=== PATIENT | female | born 1995 | race Caucasian/White ===

== ENCOUNTER 2017-01-25 18:57 | Emergency (ER) | payer OTHER ==
[~2017-01-25] VITALS: Ht 160 cm; Wt 43.0 kg
[~2017-01-25 18:57] MED LIST: ALBUAER19 INH; BCPILLS PO; CRAN1TAB9 PO
[2017-01-25 19:13] VITALS: TEMP 36.9; Ht 160 cm; Wt 43.0 kg
[2017-01-25] MEDS ORDERED: SODIUM CHLORIDE 0.9% 1000ML 1,000 ML IV ONE (20:44)
[2017-01-25] MEDS ORDERED: SODIUM CHLORIDE 0.9% 1000ML 1,000 ML IV STA (20:44)
--- NOTE | 2017-01-25 20:52 | EMERGENCY ROOM VISIT NOTE ---
History Report prepared by Presley: Phil Painter Under the Supervision of: Dr. Chilo Trinidad M.D. First contact with patient: 20:38 Chief Complaint: ABDOMINAL PAIN Stated Complaint: CRAMPS,LOSS OF SYMPTOMS, 9WKS Nursing Triage Summary: 9 weeks . abdominal cramping for 1 week. previous miscarriage. denies N/V/D History of Present Illness The patient is a 21 year old female who presents to the Emergency Room with complaints of constant abdominal cramping for the past week. The patient states that she is currently 9 weeks , and she has a history of a miscarriage 3 years ago. The patient states that earlier she was nauseous and vomited, however these symptoms have gone away, and this is similar to her last miscarriage, so she is worried. She states that her last normal menstrual period was November 18. The patient denies any vaginal bleeding, urinary symptoms, or headaches. The patient additionally states that she has been having normal bowel movements. The patient states that she was recently at the clinic, and they stated that the fetus was healthy and had a heart beat. She states that the patient has an appointment with a bread dumper in a few weeks. She states that she has no other medical problems, and she is just taking vitamins. Source of History: patient, parent Onset: week ago Position: abdomen Quality: cramping Timing: constant Associated Symptoms: No headache, No urinary symptoms Review of Systems See HPI for pertinent positives & negatives. A total of 10 systems reviewed and were otherwise negative. Past Medical & Surgical Medical Problems: (1) Missed Old medical records were reviewed. Nurse's notes were reviewed and I agree with. This is her second . Previous miscarriage 1 Family History Cancer Diabetes mellitus Social History Smoking Status: Never Smoker Alcohol Use: none Drug Use: none Marital Status: single Housing Status: lives with significant other Occupation Status: employed Current/Historical Medications Scheduled Multivit/Min/Iron/Fol Ac/Pren ( Vitamin), 1 TAB PO DAILY Allergies Coded Allergies: No Known Allergies (Verified , 04/27/14) Physical Exam Vital Signs Date Time Temp Pulse Resp B/P Pulse Ox O2 Delivery O2 Flow Rate FiO2 01/25/17 23:54 72 20 108/63 99 01/25/17 22:27 60 16 115/60 100 Room Air 01/25/17 20:36 73 16 118/71 100 Room Air 01/25/17 19:13 36.9 102 20 124/70 100 Room Air Physical Exam General: Non-ill appearing young female in no acute distress. HEENT: Normal cephalic atraumatic. Pupils are equal round and reactive to light. Extraocular movements are intact. Oropharynx is pink with moist mucous membranes. No swelling of the mouth lips or tongue. Neck: Supple with a midline trachea. No meningeal signs or stiffness, no JVD or bruits. No Stridor. Chest: Clear to auscultation bilaterally. No wheezes or rhonchi. No increased work of breathing. Heart: regular rate and rhythm. Abdomen: Soft nontender, nondistended without rebound guarding or rigidity. Extremities: No cyanosis clubbing or edema. No calf tenderness or assymetry Spine/Back. Non tender to palpation. No CVA tenderness Skin: Good turgor without rashes. Neurologic exam: Cranial nerves two through 12 are intact. Motor and sensation are intact and symmetrical throughout. Medical Decision & Procedures ER Provider Diagnostic Interpretation: Radiology results as stated below per my review and radiologist interpretation: Limited ultrasound LIMITED (US) CLINICAL HISTORY: eval for ectopic, miscarriage pain TECHNIQUE: Ultrasound COMPARISON STUDY: None FINDINGS: Single, viable intrauterine . Expected gestational age is 9 weeks 1 day. A heart rate is confirmed at 170 bpm. IMPRESSION: Single, viable intrauterine . Estimated gestational age is 9 weeks 1 day. Electronically signed by: Rolando Earl M.D. 01/25/2017 10:30 PM Dictated Date/Time: 01/25/2017 10:28 PM Laboratory Results 01/25/17 21:04 Red Blood Count 4.83, Mean Corpuscular Volume 83.4, Mean Corpuscular Hemoglobin 30.8, Mean Corpuscular Hemoglobin Concent 37.0, Mean Platelet Volume 8.8, Neutrophils (%) (Auto) 76.4, Lymphocytes (%) (Auto) 14.7, Monocytes (%) (Auto) 8.0, Eosinophils (%) (Auto) 0.3, Basophils (%) (Auto) 0.3, Neutrophils # (Auto) 8.76, Lymphocytes # (Auto) 1.68, Monocytes # (Auto) 0.92, Eosinophils # (Auto) 0.04, Basophils # (Auto) 0.03 01/25/17 21:04 Test 01/25/17 20:35 01/25/17 21:04 Urine Color YELLOW Urine Appearance CLEAR (CLEAR) Urine pH 7.5 (4.5-7.5) Urine Specific [place] 1.010 (1.000-1.030) Urine Protein NEG (NEG) Urine Glucose (UA) NEG (NEG) Urine Ketones 1+ (NEG) Urine Occult Blood TRACE (NEG) Urine Nitrite NEG (NEG) Urine Bilirubin NEG (NEG) Urine Urobilinogen NEG (NEG) Urine Leukocyte Esterase MODERATE (NEG) Urine RBC 0-4 /hpf (0-4) Urine WBC 10-30 /hpf (0-5) Urine Epithelial Cells >30 /lpf (0-5) Urine Bacteria NEG (NEG) White Blood Count 11.46 K/uL (4.8-10.8) Red Blood Count 4.83 M/uL (4.2-5.4) Hemoglobin 14.9 g/dL (12.0-16.0) Hematocrit 40.3 % (37-47) Mean Corpuscular Volume 83.4 fL (80-100) Mean Corpuscular Hemoglobin 30.8 pg (25-34) Mean Corpuscular Hemoglobin Concent 37.0 g/dl (32-36) Platelet Count 231 K/uL (130-400) Mean Platelet Volume 8.8 fL (7.4-10.4) Neutrophils (%) (Auto) 76.4 % Lymphocytes (%) (Auto) 14.7 % Monocytes (%) (Auto) 8.0 % Eosinophils (%) (Auto) 0.3 % Basophils (%) (Auto) 0.3 % Neutrophils # (Auto) 8.76 K/uL (1.4-6.5) Lymphocytes # (Auto) 1.68 K/uL (1.2-3.4) Monocytes # (Auto) 0.92 K/uL (0.11-0.59) Eosinophils # (Auto) 0.04 K/uL (0-0.5) Basophils # (Auto) 0.03 K/uL (0-0.2) RDW Standard Deviation 36.8 fL (36.4-46.3) RDW Coefficient of Variation 12.0 % (11.5-14.5) Immature Granulocyte % (Auto) 0.3 % Immature Granulocyte # (Auto) 0.03 K/uL (0.00-0.02) Anion Gap 13.0 mmol/L (3-11) Est Creatinine Clear Calc Drug Dose 132.4 ml/min Estimated GFR () > 150.0 Estimated GFR (Non- 143.2 BUN/Creatinine Ratio 11.5 (10-20) Calcium Level 9.2 mg/dl (8.5-10.1) Total Bilirubin 1.8 mg/dl (0.2-1) Direct Bilirubin 0.3 mg/dl (0-0.2) Aspartate Amino Transf (AST/SGOT) 16 U/L (15-37) Alanine Aminotransferase (ALT/SGPT) 22 U/L (12-78) Alkaline Phosphatase 69 U/L (45-117) Total Protein 7.9 gm/dl (6.4-8.2) Albumin 4.1 gm/dl (3.4-5.0) Lipase 90 U/L (73-393) Human Chorionic Gonadotropin, Quant [id number] mIU/mL Lab results reviewed by me Medications Administered Medications (Trade) Dose Ordered Sig/Myla Route Start Time Stop Time Status Last Admin Dose Admin Sodium Chloride (Nss 1000ml) 1,000 ml @ 999 mls/hr Q1H1M STAT IV 01/25/17 20:44 01/25/17 21:44 DC 01/25/17 20:44 999 MLS/HR ED Course 2037: Past medical records reviewed. The patient was evaluated in room C4, and a complete history and physical examination were performed. 2043: Sodium Chloride 1000 ml @ 999 mls/hr IV, Sodium Chloride 1000 ml @ 150 mls /hr IV 6: Upon reevaluation, the patient is feeling better. I discussed the results and treatment plan with her. She verbalized agreement of the treatment plan. The patient was discharged home. Medical Decision Differentials include, but are not limited to; ectopic , miscarriage, intrauterine , UTI, electrolyte or metabolic abnormalities. This patient comes in as described above. She is . She's had no vaginal bleeding. She felt sick and now feels well and felt like this during her previous miscarriage was concerned that she could be starting to miscarry. She's had no trauma. She has no urinary symptoms. She has some mild lower abdominal pain at times. IV access established was hydrated with IV normal saline. Multiple blood tests was obtained. Her white count minimally elevated. She is not anemic. She's had no significant electrolyte or metabolic abnormalities. Her urinalysis is suboptimal and I do not think is likely has a UTI. She has no symptoms to suggest a UTI and we will await the culture results. Ultrasound shows a viable IUP with a normal heartbeat. The patient was reassured that at this point things looked good. She is Rh- however she has no bleeding or indication for RhoGAM at this point. I encouraged her to follow up with her bread dumper the next couple days for recheck and return to the ER if: vaginal bleeding, abdominal cramping, worsening of symptoms, any new problems or concerns. She is happy the plan and discharged to home. Impression Primary Impression: Intrauterine Additional Impression: Lower abdominal pain Scribe Attestation The scribe's documentation has been prepared under my direction and personally reviewed by me in its entirety. I confirm that the note above accurately reflects all work, treatment, procedures, and medical decision making performed by me. Departure Information Dispostion Home / Self-Care Referrals No Doctor, Assigned (PCP) Forms HOME CARE DOCUMENTATION FORM, IMPORTANT VISIT INFORMATION Patient Instructions My [facility] Additional Instructions Rest. Drink plenty of fluids. Return if: Increasing pain, vaginal bleeding, worsening of symptoms, fever orchills, any new problems or concerns. Follow-up with your doctor/obGYN in 1-2 days for recheck Problem Qualifiers
[2017-01-25 21:07] LABS: URINE APPEARANCE CLEAR (CLEAR); URINE BILIRUBIN NEG (NEG); URINE COLOR YELLOW; URINE NITRITE NEG (NEG); URINE PH 7.5 (4.5-7.5); UROBILINOGEN NEG (NEG)
[2017-01-25 21:09] LABS: REVIEW REQ? NO; SULFASALICYLIC ACID NEG (NEG)
[2017-01-25 21:15] LABS: BASO % 0.3 %; BASO ABS # 0.03 K/uL (0-0.2); COMPLETE YES; EOS % 0.3 %; HEMATOCRIT 40.3 % (37-47); IG% 0.3 %; LYMPH % 14.7 %; LYMPH ABS # 1.68 K/uL (1.2-3.4); MEAN CELL VOLUME 83.4 fL (80-100); MEAN CORPUSCULAR HEMOGLOBIN 30.8 pg (25-34); MEAN PLATELET VOLUME 8.8 fL (7.4-10.4); NEUT % 76.4 %; PLATELET COUNT 231 K/uL (130-400); RED BLOOD COUNT 4.83 M/uL (4.2-5.4); WHITE BLOOD COUNT 11.46 K/uL (4.8-10.8)
[2017-01-25] MEDS ORDERED: PRENTAB26 PO (21:25)
[2017-01-25 21:32] LABS: ALT/SGPT 22 U/L (12-78); BLOOD UREA NITROGEN 5 mg/dl (7-18); BUN/CREATININE RATIO 11.5 (10-20); CALCIUM 9.2 mg/dl (8.5-10.1); CARBON DIOXIDE 21 mmol/L (21-32); CHLORIDE 105 mmol/L (98-107); CREATININE 0.46 mg/dl (0.60-1.20); GLUCOSE 78 mg/dl (70-99); POTASSIUM 3.4 mmol/L (3.5-5.1); SODIUM 139 mmol/L (136-145)
[2017-01-25 21:34] LABS: ALKALINE PHOSPHATASE 69 U/L (45-117); AST/SGOT 16 U/L (15-37)
[2017-01-25 22:16] LABS: MANUAL MICROSCOPIC REQUIRED? YES
[2017-01-25 22:23] LABS: URINE BACTERIA NEG (NEG); URINE RBC 0-4 /hpf (0-4)
--- NOTE | 2017-01-25 22:31 | DIAGNOSTIC IMAGING REPORT ---
Limited ultrasound LIMITED (US) CLINICAL HISTORY: eval for ectopic, miscarriage pain TECHNIQUE: Ultrasound COMPARISON STUDY: None FINDINGS: Single, viable intrauterine . Expected gestational age is 9 weeks 1 day. A heart rate is confirmed at 170 bpm. IMPRESSION: Single, viable intrauterine . Estimated gestational age is 9 weeks 1 day. Electronically signed by: Rolando Earl M.D. 01/25/2017 10:30 PM Dictated Date/Time: 01/25/2017 10:28 PM
[2017-01-25 23:54] VITALS: BP 108/63; PULSE 72; O2SAT 99
--- NOTE | 2017-01-27 12:38 | Pharmacy Progress Note ---
ED Pharmacist Culture FollowUp Date of Service: Jan 27, 2017. Urine Cx from 01/25/17 is growing lactobacillus and gardnerella-like bacteria, neither of which are likely urinary pathogens. Corresponding UA showed > 30 epis, indicating likely contamination from vaginal arely. No action required at this time.
== END 2017-01-25 23:49 | disposition home or self-care (01) ==
LOC: C.EDB 18:58 → C.EDC 23:49
DX: O26.891 Other specified pregnancy related conditions, first trimester (principal); R10.30 Lower abdominal pain, unspecified; Z3A.09 9 weeks gestation of pregnancy

== ENCOUNTER 2017-02-16 17:00 | Emergency (ER) | payer OTHER ==
[~2017-02-16] VITALS: Ht 160 cm; Wt 43.5 kg
[~2017-02-16 17:00] MED LIST changes: -ALBUAER19 INH; -BCPILLS PO; -CRAN1TAB9 PO; +PRENTAB26 PO
[2017-02-16 17:20] VITALS: BP 117/81; PULSE 99; TEMP 37; O2SAT 97; Ht 160 cm; Wt 43.5 kg
[2017-02-16] MEDS ORDERED: ELMCR EXT (17:50)
--- NOTE | 2017-02-16 18:06 | EMERGENCY ROOM VISIT NOTE ---
History First contact with patient: 17:31 Chief Complaint: SKIN PROBLEM Stated Complaint: RED ITCHY BUMPS - 90% SCABIES History of Present Illness The patient is a 21 year old female who presents to the Emergency Room with complaints of an itchy rash over the past several days. The patient reports worsening itch overnight. She reports that he itches worse between her fingers , scalp, buttocks and groin. She is also noticing red bumps all over. The patient reports that her roommates have all been diagnosed with scabies as well at the [facility] urgent care center. The patient denies any fevers or chills. It is noted that the patient is also currently . Review of Systems 10 system review was performed and was negative except for pertinent positives and negatives as indicated in history of present illness Past Medical/Surgical History Medical Problems: (1) Missed Family History Cancer Diabetes mellitus Social History Smoking Status: Never Smoker Alcohol Use: none Drug Use: none Marital Status: single Housing Status: lives with significant other Occupation Status: employed Current/Historical Medications Scheduled Multivit/Min/Iron/Fol Ac/Pren ( Vitamin), 1 TAB PO DAILY Permethrin 5% (Elimite 5%), 0 EXT UD Allergies Coded Allergies: No Known Allergies (Verified , 02/16/17) Physical Exam Vital Signs Date Time Temp Pulse Resp B/P Pulse Ox O2 Delivery O2 Flow Rate FiO2 02/16/17 17:20 37.0 99 18 117/81 97 Room Air Pain Rating (0-10): 0 Physical Exam CONSTITUTIONAL: Healthy and well nourished. Alert and oriented X 3 with positive affect. HEENT: Normocephalic, atraumatic. Pupils equal, round and reactive. Ears and nares are clear. No scrotal icterus or conjunctival injection. NECK: Full active range of motion without discomfort. RESPIRATORY: Clear to auscultation bilaterally with no wheezing, crackles, rhonchi or stridor. CARDIOVASCULAR: Regular rate and rhythm with no murmurs, rubs or gallops. GASTROINTESTINAL: Bowel sounds present in all quadrants. No hepatosplenomegaly. MUSCULOSKELETAL: Full range of motion of all joints without discomfort. INTEGUMENTARY: Examination shows a papular rash that is most focused around the neck, scalp, hands, intertriginous regions and upper buttocks. No pustules , vesicles, desquamation or bullae. No lichenification or excoriation noted. NEUROLOGIC: No focal neurologic deficits noted. Medical Decision & Procedures ED Course Patient history and physical exam were performed. Nurse's notes were reviewed. History and physical exam are consistent with a scabies infection. I did advise the patient that Elimite cream is category B with . She was given instructions on its use, and encouraged to clean all linens, furniture, bedding and clothing. She may repeat the treatment in 2 weeks. She was instructed to follow-up with her PCP as needed for further management. The patient was happy with plan of care, and voiced understanding of all discharge instructions. Medical Decision Impression Primary Impression: Scabies Departure Information Dispostion Home / Self-Care Prescriptions Permethrin 5% (Elimite 5%) 180 Appln/60 Gm Cr 0 EXT UD, #1 TUBE APPLY HEAD TO FOOT - LEAVE ON 8-14 HR - WASH OFF Prov: Scott Zapata PA 02/16/17 Forms HOME CARE DOCUMENTATION FORM, IMPORTANT VISIT INFORMATION Patient Instructions Scabies, My [facility] Additional Instructions Apply Elimite cream head to toe, and allowed to remain in place for 8-14 hours minimum. During this period of time, clean all linens, clothing and furniture/mattresses. You may repeat the Elimite treatment in 2 weeks. Follow-up with your family doctor as needed.
== END 2017-02-16 17:59 | disposition home or self-care (01) ==
LOC: C.EDB 17:00 → C.EDD 17:59
DX: B86 Scabies (principal)

== ENCOUNTER 2017-04-17 12:13 | Emergency (ER) | payer OTHER ==
[~2017-04-17] VITALS: Ht 160 cm; Wt 52.7 kg
[~2017-04-17 12:13] MED LIST changes: +ELMCR EXT
[2017-04-17 12:23] VITALS: TEMP 36.7; Ht 160 cm; Wt 52.7 kg
[2017-04-17] MEDS ORDERED: SODIUM CHLORIDE 0.9% 1000ML 1,000 ML IV STA (12:35)
[2017-04-17 13:17] LABS: URINE APPEARANCE TURBID (CLEAR); URINE BILIRUBIN NEG (NEG); URINE COLOR YELLOW; URINE EPITHELIAL CELL AUTO >30 /lpf (0-5); URINE NITRITE NEG (NEG); URINE SPECIFIC GRAVITY 1.019 (1.000-1.030); UROBILINOGEN NEG (NEG); ZZUR CULT IF INDIC CLEAN CATCH YES
[2017-04-17 13:20] LABS: MANUAL MICROSCOPIC REQUIRED? NO; REVIEW REQ? NO
[2017-04-17 13:21] LABS: BASO % 0.3 %; BASO ABS # 0.03 K/uL (0-0.2); COMPLETE YES; EOS % 0.5 %; HEMATOCRIT 35.1 % (37-47); IG% 0.9 %; LYMPH % 13.7 %; LYMPH ABS # 1.38 K/uL (1.2-3.4); MEAN CELL VOLUME 88.6 fL (80-100); MEAN CORPUSCULAR HEMOGLOBIN 31.8 pg (25-34); MEAN CORPUSCULAR HGB CONC 35.9 g/dl (32-36); MEAN PLATELET VOLUME 8.7 fL (7.4-10.4); MONO % 7.5 %; NEUT % 77.1 %; PLATELET COUNT 238 K/uL (130-400); RED BLOOD COUNT 3.96 M/uL (4.2-5.4); WHITE BLOOD COUNT 10.08 K/uL (4.8-10.8)
[2017-04-17 13:37] LABS: ALT/SGPT 16 U/L (12-78); BLOOD UREA NITROGEN 8 mg/dl (7-18); BUN/CREATININE RATIO 16.3 (10-20); CALCIUM 8.9 mg/dl (8.5-10.1); CARBON DIOXIDE 20 mmol/L (21-32); CHLORIDE 107 mmol/L (98-107); CREATININE 0.48 mg/dl (0.60-1.20); GLUCOSE 64 mg/dl (70-99); POTASSIUM 3.6 mmol/L (3.5-5.1); SODIUM 138 mmol/L (136-145)
[2017-04-17 13:41] LABS: ALKALINE PHOSPHATASE 72 U/L (45-117); AST/SGOT 14 U/L (15-37)
--- NOTE | 2017-04-17 14:13 | DIAGNOSTIC IMAGING REPORT ---
LIMITED (US) CLINICAL HISTORY: Right pelvic pain, 21 weeks gestation. COMPARISON STUDY: ultrasound January 25, 2017. TECHNIQUE: Transabdominal sonography of the pelvis was performed. FINDINGS: A single viable intrauterine gestation is noted with cephalic presentation and normal heart rate of 154 bpm. The placenta is located anteriorly. There is no placental abnormality. Please note that a dedicated anatomical survey was not performed. Femur length measures 3.63 cm which corresponds to an estimated gestational age of 21 weeks and 4 days. Cervix is closed, measuring 3.5 cm in length. Amniotic fluid index is normal at 13.96 cm. IMPRESSION: 1. Single viable intrauterine gestation. 2. No placental abnormality. 3. Closed cervix, measuring 3.5 cm in length. 4. Normal amniotic fluid index of 13.96 cm. Electronically signed by: Rey Rowley M.D. 04/17/2017 2:12 PM Dictated Date/Time: 04/17/2017 2:04 PM
[2017-04-17] MEDS ORDERED: CEPHALEXIN 500MG HOME PACK 1 EA BTL PO ONE (16:30)
[2017-04-17] MEDS ORDERED: CEPH500C PO (16:32)
[2017-04-17 16:50] VITALS: BP 106/59; PULSE 88; O2SAT 100
--- NOTE | 2017-04-17 19:45 | EMERGENCY ROOM VISIT NOTE ---
History Report prepared by Presley: Jenny Montilla Under the Supervision of: Dr. Blanco Rhodes M.D. First contact with patient: 12:35 Chief Complaint: ABDOMINAL PAIN Stated Complaint: RIGHT SIDE PAIN,DIZZINESS,NAUSEA, Nursing Triage Summary: Patient reports right lower quadrant pain that started this morning with nausea. Patient is 21 weeks . History of Present Illness The patient is a 22 year old female who presents to the Emergency Room with complaints of worsening right lower quadrant abdominal pain starting about an hour ago. The pain is located down towards the pelvis. She was working on [employer] when she had the onset of her pain. She denies any heavy lifting or straining. She has a history of similar pain occurring on the left side of the abdomen but her OB-SHOE STAMPER was not concerned about that pain at the time. She is currently 21 weeks . This is her second . Her first resulted in a miscarriage at 10 weeks and she had a DNC. The patient also complains of some nausea but denies vomiting. She has been having diarrhea for the past 3 days. Pt denies LOC, headache, fevers, chills, diaphoresis, visual changes, neck pain , chest pain, breathing difficulties, back pain, melena, hematochezia, urinary symptoms, vaginal bleeding or discharge, numbness, weakness, lymphadenopathy, rash, swollen glands, or other complaints. She has a history of UTI. Source of History: patient Onset: about an hour ago Position: abdomen (RLQ) Timing: worsening Associated Symptoms: + nausea, + diarrhea Review of Systems See HPI for pertinent positives and negatives. A total of ten systems were reviewed and were otherwise negative. Past Medical & Surgical Medical Problems: (1) Miscarriage (2) Missed (3) RLQ abdominal pain (4) Urinary tract infection (5) Vagina, candidiasis Surgical Problems: (1) H/O dilation and curettage Family History Cancer Diabetes mellitus Social History Smoking Status: Never Smoker Alcohol Use: none Drug Use: none Marital Status: single Housing Status: lives with significant other Occupation Status: employed Current/Historical Medications Scheduled Cephalexin Monohydrate (Keflex), 500 MG PO QID Multivit/Min/Iron/Fol Ac/Pren ( Vitamin), 1 TAB PO DAILY Allergies Coded Allergies: No Known Allergies (Verified , 04/17/17) Physical Exam Vital Signs Date Time Temp Pulse Resp B/P (MAP) Pulse Ox O2 Delivery O2 Flow Rate FiO2 04/17/17 16:50 88 20 106/59 100 04/17/17 16:00 74 20 126/59 98 Room Air 04/17/17 13:58 62 20 98 Room Air 04/17/17 13:10 64 04/17/17 12:23 36.7 91 18 109/77 99 Room Air Physical Exam GENERAL: Awake, alert, uncomfortable-appearing, in no distress HENT: Normocephalic, atraumatic. Oropharynx unremarkable. EYES: Normal conjunctiva. Sclera non-icteric. NECK: Supple. No nuchal rigidity. FROM. No JVD. RESPIRATORY: Clear to auscultation. CARDIAC: Regular rate, normal rhythm. Extremities warm and well perfused. Pulses equal. ABDOMEN: Soft, non-distended. Gravid abdomen. No tenderness to palpation. No rebound or guarding. No masses. RECTAL: Deferred. MUSCULOSKELETAL: Chest examination reveals no tenderness. The back is symmetrical on inspection without obvious abnormality. There is no CVA tenderness to palpation. No joint edema. LOWER EXTREMITIES: Calves are equal size bilaterally and non-tender. No edema. No discoloration. NEURO: Normal sensorium. No sensory or motor deficits noted. SKIN: No rash or jaundice noted. Medical Decision & Procedures ER Provider Diagnostic Interpretation: US: Radiology results as stated below per my review and radiologist interpretation LIMITED (US) CLINICAL HISTORY: Right pelvic pain, 21 weeks gestation. COMPARISON STUDY: ultrasound January 25, 2017. TECHNIQUE: Transabdominal sonography of the pelvis was performed. FINDINGS: A single viable intrauterine gestation is noted with cephalic presentation and normal heart rate of 154 bpm. The placenta is located anteriorly. There is no placental abnormality. Please note that a dedicated anatomical survey was not performed. Femur length measures 3.63 cm which corresponds to an estimated gestational age of 21 weeks and 4 days. Cervix is closed, measuring 3.5 cm in length. Amniotic fluid index is normal at 13.96 cm. IMPRESSION: 1. Single viable intrauterine gestation. 2. No placental abnormality. 3. Closed cervix, measuring 3.5 cm in length. 4. Normal amniotic fluid index of 13.96 cm. Electronically signed by: Rey Rowley M.D. 04/17/2017 2:12 PM Dictated Date/Time: 04/17/2017 2:04 PM Laboratory Results 04/17/17 13:00 Red Blood Count 3.96, Mean Corpuscular Volume 88.6, Mean Corpuscular Hemoglobin 31.8, Mean Corpuscular Hemoglobin Concent 35.9, Mean Platelet Volume 8.7, Neutrophils (%) (Auto) 77.1, Lymphocytes (%) (Auto) 13.7, Monocytes (%) (Auto) 7.5, Eosinophils (%) (Auto) 0.5, Basophils (%) (Auto) 0.3, Neutrophils # (Auto) 7.77, Lymphocytes # (Auto) 1.38, Monocytes # (Auto) 0.76, Eosinophils # (Auto) 0.05, Basophils # (Auto) 0.03 04/17/17 13:00 Test 04/17/17 12:35 04/17/17 13:00 04/17/17 14:41 Urine Color YELLOW Urine Appearance TURBID (CLEAR) Urine pH 8.0 (4.5-7.5) Urine Specific Mcclelland 1.019 (1.000-1.030) Urine Protein NEG (NEG) Urine Glucose (UA) NEG (NEG) Urine Ketones NEG (NEG) Urine Occult Blood TRACE (NEG) Urine Nitrite NEG (NEG) Urine Bilirubin NEG (NEG) Urine Urobilinogen NEG (NEG) Urine Leukocyte Esterase LARGE (NEG) Urine WBC (Auto) >30 /hpf (0-5) Urine RBC (Auto) 0-4 /hpf (0-4) Urine Hyaline Casts (Auto) 5-10 /lpf (0-5) Urine Epithelial Cells (Auto) >30 /lpf (0-5) Urine Bacteria (Auto) 2+ (NEG) White Blood Count 10.08 K/uL (4.8-10.8) Red Blood Count 3.96 M/uL (4.2-5.4) Hemoglobin 12.6 g/dL (12.0-16.0) Hematocrit 35.1 % (37-47) Mean Corpuscular Volume 88.6 fL (80-100) Mean Corpuscular Hemoglobin 31.8 pg (25-34) Mean Corpuscular Hemoglobin Concent 35.9 g/dl (32-36) Platelet Count 238 K/uL (130-400) Mean Platelet Volume 8.7 fL (7.4-10.4) Neutrophils (%) (Auto) 77.1 % Lymphocytes (%) (Auto) 13.7 % Monocytes (%) (Auto) 7.5 % Eosinophils (%) (Auto) 0.5 % Basophils (%) (Auto) 0.3 % Neutrophils # (Auto) 7.77 K/uL (1.4-6.5) Lymphocytes # (Auto) 1.38 K/uL (1.2-3.4) Monocytes # (Auto) 0.76 K/uL (0.11-0.59) Eosinophils # (Auto) 0.05 K/uL (0-0.5) Basophils # (Auto) 0.03 K/uL (0-0.2) RDW Standard Deviation 40.9 fL (36.4-46.3) RDW Coefficient of Variation 12.7 % (11.5-14.5) Immature Granulocyte % (Auto) 0.9 % Immature Granulocyte # (Auto) 0.09 K/uL (0.00-0.02) Anion Gap 11.0 mmol/L (3-11) Est Creatinine Clear Calc Drug Dose 153.3 ml/min Estimated GFR () > 150.0 Estimated GFR (Non- 140.2 BUN/Creatinine Ratio 16.3 (10-20) Calcium Level 8.9 mg/dl (8.5-10.1) Total Bilirubin 0.6 mg/dl (0.2-1) Direct Bilirubin 0.1 mg/dl (0-0.2) Aspartate Amino Transf (AST/SGOT) 14 U/L (15-37) Alanine Aminotransferase (ALT/SGPT) 16 U/L (12-78) Alkaline Phosphatase 72 U/L (45-117) Total Protein 7.2 gm/dl (6.4-8.2) Albumin 3.0 gm/dl (3.4-5.0) Lipase 107 U/L (73-393) Bedside Glucose 67 mg/dl (70-90) Laboratory results reviewed by me Medications Administered Medications (Trade) Dose Ordered Sig/Myla Route Start Time Stop Time Status Last Admin Dose Admin Sodium Chloride 1,000 ml @ 125 mls/hr Q8H STAT IV 04/17/17 12:35 04/17/17 17:37 DC 04/17/17 13:03 125 MLS/HR Cephalexin Monohydrate (Keflex 500MG Home Pack) 1 homepack NOW ONCE PO 04/17/17 16:30 04/17/17 16:31 DC 04/17/17 16:54 1 HOMEPACK ED Course 1235: The patient was evaluated in room B07. A complete history and physical exam was performed. heart rate was 155-160. Medication Reconciliation: I attest that I have personally reviewed the patient' s current medication list Blood pressure screening: Patient was found to have normal blood pressure on screening and does not require follow-up. Sodium Chloride 1000 ml @ 125 mls/hr IV 1530: I reevaluated the patient who is resting comfortably. 1534: I discussed the patient's case with Dr. Dial, OB-SHOE STAMPER with [facility]. 1630: Cephalexin Monohydrate 1 homepack PO. I reevaluated the patient. Discussed results and discharge instructions: She verbalized understanding and agreement. The patient is ready for discharge. Medical Decision Triage Nursing notes reviewed. The patient's presentation and history were concerning for lower abdominal pain and . Etiologies such as premature labor, abruption,UTI, demise, appendicitis, diverticulitis, obstruction, inflammatory bowel disease, renal colic, PUD, biliary pathology, pancreatitis, mesenteric ischemia, aortic pathology, infections, genitourinary, perforated viscus, as well as others were entertained. The patient was evaluated. Clinically she was doing well. She had complaints of right lower pain but no pain that was reproducible on examination. She had no vaginal bleeding or fluid leaking. The patient was hydrated. She had blood work obtained. Her CBC, chemistry panel, LFTs, lipase were unremarkable except for hypoglycemia. This was verified. The patient was given food as her pain resolved. Urinalysis did show some bacteria and other signs that could be concerning for infection. Given her state of I did discuss initiation of Keflex. Ultrasound was unremarkable. The patient is currently asymptomatic. I did discuss the case with RADIATION CONTROL TECHNICIAN and the patient will be monitored and evaluated on labor and delivery given her status. Consults Time Called: 1530 Consulting Physician: Dr. Dial, OB-SHOE STAMPER with [facility] Returned Call: 1534 I discussed the patient's case with Dr. Dial, OB-SHOE STAMPER with [facility]. Impression Primary Impression: RLQ abdominal pain Additional Impression: Second trimester Scribe Attestation The scribe's documentation has been prepared under my direction and personally reviewed by me in its entirety. I confirm that the note above accurately reflects all work, treatment, procedures, and medical decision making performed by me. Departure Information Dispostion Home / Self-Care Prescriptions Cephalexin Monohydrate (Keflex) 500 Mg Cap 500 MG PO QID, #8 CAP Prov: Blanco Rhodes MD 04/17/17 Referrals No Doctor, Assigned (PCP) Forms HOME CARE DOCUMENTATION FORM, IMPORTANT VISIT INFORMATION Patient Instructions My [facility] Additional Instructions ABDOMINAL PAIN INSTRUCTIONS: Cephalexin(Keflex) 500mg: Take one pill four times daily for 3 days for your urine. All antibiotics can cause diarrhea. If this occurs and you feel worse or it does not resolve in 1-2 days follow up with your doctor or return to the Emergency Department as this could be signs of serious underlying problems. Any medication can cause an allergic reaction, stop the pills immediately and return to the ER for rash, hives, breathing difficulties, or swelling. Tylenol: Take 1000 mg every 6 hours as needed for pain. Do not take more than 3000 mg in a 24 hour period. Rest and drink plenty of fluids as tolerated. Slow sips of water or sports drinks are recommended instead of large amounts all at once. Continue current medications. Return to the ER immediately for worsening or persistent abdominal pain, vomiting, fevers, chest pains, difficulty breathing, black or bloody stools, vaginal bleeding, vaginal fluid leaking, worsening of your condition, or as needed. Proceed to RADIATION CONTROL TECHNICIAN now for monitoring. Follow up with your primary physician in 3 days for a recheck of your current condition. Problem Qualifiers
== END 2017-04-17 16:50 | disposition home or self-care (01) ==
LOC: C.EDB 12:15
DX: R10.31 Right lower quadrant pain (principal); O26.892 Other specified pregnancy related conditions, second trimester; Z3A.21 21 weeks gestation of pregnancy; Z87.440 Personal history of urinary (tract) infections; Z80.9 Family history of malignant neoplasm, unspecified; Z83.3 Family history of diabetes mellitus; Z79.899 Other long term (current) drug therapy

== ENCOUNTER 2017-04-17 16:58 | Outpatient (CLI) | payer OTHER ==
[~2017-04-17 16:58] MED LIST changes: +CEPH500C PO
[2017-04-17] MEDS ORDERED: FLUCONAZOLE 50 MG TAB PO ONE (18:30)
[2017-04-17] MEDS ORDERED: ACETAMINOPHEN 325 MG TAB PO PRN (18:30)
== END 2017-04-17 18:40 | disposition home or self-care (01) ==
LOC: C.LD 16:58 → C.OPB 16:58
PROVIDERS: ATTEND Obstetrics & Gynecology
DX: O26.892 Other specified pregnancy related conditions, second trimester (principal); R10.31 Right lower quadrant pain; Z3A.21 21 weeks gestation of pregnancy

== ENCOUNTER 2017-07-16 15:39 | Outpatient (CLI) | payer OTHER ==
[~2017-07-16] VITALS: Ht 160 cm; Wt 65.6 kg
[~2017-07-16 15:39] MED LIST changes: -ELMCR EXT
[2017-07-16] MEDS ORDERED: LACTATED RINGER'S 1000ML 1,000 ML IV SCH (16:04)
[2017-07-16] MEDS ORDERED: LACTATED RINGER'S 1000ML 500 ML IV ONE (16:04)
[2017-07-16] MEDS ORDERED: TERBUTALINE SULFATE 1 MG/ML VIAL SQ ONE (16:30)
[2017-07-16 16:56] VITALS: Ht 160 cm; Wt 65.6 kg
== END 2017-07-16 18:14 | disposition home or self-care (01) ==
LOC: C.LD 15:39 → C.OPB 15:39
PROVIDERS: ATTEND Obstetrics & Gynecology
DX: O62.9 Abnormality of forces of labor, unspecified (principal); O36.8130 Decreased fetal movements, third trimester, not applicable or unspecified; Z3A.34 34 weeks gestation of pregnancy

== ENCOUNTER 2017-08-27 13:38 | Inpatient (IN) | payer OTHER ==
[~2017-08-27] VITALS: Ht 160 cm; Wt 41.0 kg
[~2017-08-27 13:38] MED LIST changes: -CEPH500C PO
[2017-08-27 15:10] VITALS: Ht 160 cm; Wt 41.0 kg
[2017-08-27] MEDS ORDERED: LACTATED RINGER'S 1000ML 500 ML IV PRN ×2 (15:24→21:12)
[2017-08-27] MEDS ORDERED: OXYTOCIN 30 UNITS/500ML NSS IV PRN (15:30)
[2017-08-27] MEDS: LACTATED RINGER'S 1000ML 1,000 ML IV SCH ×2 (15:34→20:35)
--- NOTE | 2017-08-27 15:47 | HISTORY & PHYSICAL EXAMINATION ---
DATE OF ADMISSION: 08/27/2017 HISTORY OF PRESENT ILLNESS: This is a 22-year-old G2, P0, due date 08/25/2017 making her 40 weeks and 2 days today. The patient was seen in the office for routine care during which she complained of discharge. She was examined and found to have had spontaneous rupture of membranes. The patient reported having experienced leaking starting at 7 a.m. today. She was sent to labor and delivery for induction of labor. On arrival to labor and delivery, she had no shortness of breath, no chills, no fever. heart rate is category 1. Amniotic fluid is clear. Bedside ultrasound shows cephalic presentation. COURSE: Has been unremarkable except for abnormal quad screen. Followup workup showed normal anatomy scan. The patient was seen by maternal medicine. LABORATORIES: Blood type O negative, antibody negative, rubella immune, GBS negative. PAST MEDICAL HISTORY: History of anxiety and depression. PAST SURGICAL HISTORY: The patient has had a D&C in 2012. SOCIAL HISTORY: The patient denies tobacco, drug or alcohol use. ALLERGIES: No known drug allergies. PHYSICAL EXAMINATION: GENERAL: Well-developed, well-nourished white female in no acute distress. HEART: S1, S2, regular rhythm and rate. LUNGS: Clear to auscultation bilaterally. ABDOMEN: Gravid. Bedside ultrasound shows cephalic presentation. Pelvic exam shows she is 2-3, 50% and -3. Estimated weight is 7-1/2 pounds. EXTREMITIES: No cyanosis, clubbing or edema. ASSESSMENT AND PLAN: A 22-year-old G2, P0 at 40 and 2 weeks. Premature rupture of membranes at 0700 hours on 08/27/2017. The patient is experiencing irregular and infrequent contractions. Decision is therefore made to start patient on Pitocin augmentation. We anticipate vaginal delivery.
[2017-08-27 15:59] LABS: MEAN CELL VOLUME 87.2 fL (80-100); MEAN CORPUSCULAR HEMOGLOBIN 30.3 pg (25-34); MEAN CORPUSCULAR HGB CONC 34.7 g/dl (32-36); MEAN PLATELET VOLUME 8.6 fL (7.4-10.4); PLATELET COUNT 213 K/uL (130-400); WHITE BLOOD COUNT 8.79 K/uL (4.8-10.8)
[2017-08-27] MEDS ORDERED: BUPIVACAINE 0.25% 30 ML VIAL ONE (19:11)
[2017-08-27] MEDS ORDERED: EpHEDrine SULFATE INJ 50 MG/ML AMP ONE (19:12)
[2017-08-27] MEDS ORDERED: FENTANYL 2MCG/ML ROPIV 1.25MG/ML 100ML BAG EPI ONE (19:12)
[2017-08-27] MEDS ORDERED: FENTANYL CITRATE INJ 50 MCG/1 ML 2 ML VIAL ONE (19:12)
[2017-08-27] MEDS ORDERED: NURSING VERBAL MED ORDER ONE (20:30)
[2017-08-27] MEDS: CALCIUM CARBONATE 500 MG CHEWABLE PO PRN (21:05)
[2017-08-27] MEDS ORDERED: NALOXONE HCL INJ 1 MG in SODIUM CHLORIDE 0.9% 1000ML 1,000 ML IV PRN (21:12)
[2017-08-27] MEDS ORDERED: DiphenhydrAMINE HCL 50 MG/ML VIAL IV PRN (21:15)
[2017-08-27] MEDS ORDERED: FENTANYL 2MCG/ML ROPIV 1.25MG/ML 100ML BAG EPI PRN (21:15)
[2017-08-27] MEDS ORDERED: NALBUPHINE HCL INJ 10 MG/ML AMP IV PRN (21:15)
[2017-08-27] MEDS ORDERED: ONDANSETRON INJ 2 MG/ML 2 ML VIAL IV PRN (21:15)
[2017-08-27] MEDS ORDERED: EpHEDrine SULFATE INJ 50 MG/ML AMP IV PRN (21:15)
[2017-08-27] MEDS ORDERED: NALOXONE HCL INJ 0.4 MG/1 ML VIAL/CARP IV PRN (21:15)
[2017-08-28] MEDS: CALCIUM CARBONATE 500 MG CHEWABLE PO PRN (00:10)
[2017-08-28] MEDS ORDERED: METHYLERGONOVINE MALEATE 0.2 MG/ML AMP ONE (03:07)
[2017-08-28] MEDS ORDERED: MISOPROSTOL 200 MCG TAB ONE (03:08)
[2017-08-28] MEDS ORDERED: OXYTOCIN INJ 20 UNITS in LACTATED RINGER'S 1000ML 1,000 ML IV SCH (03:53)
[2017-08-28] MEDS ORDERED: ACETAMINOPHEN/CODEINE 300/30MG TAB PO PRN ×2 (04:00)
[2017-08-28] MEDS ORDERED: BENZOCAINE 20% AER SPR 82.5 GM CAN EXT PRN (04:00)
[2017-08-28] MEDS ORDERED: METHYLERGONOVINE MALEATE 0.2 MG/ML AMP IM ONE (04:00)
[2017-08-28] MEDS ORDERED: OXYCODONE/ACETAMINOPHEN 5-325 TAB PO PRN (04:00)
[2017-08-28] MEDS ORDERED: ACETAMINOPHEN 325 MG TAB PO PRN (04:00)
[2017-08-28] MEDS ORDERED: HYDROCORTISONE ACETATE 25 MG SUPP PR PRN (04:00)
[2017-08-28] MEDS ORDERED: SUPERCREAM 0.870 % 15GM JAR EXT PRN (04:00)
[2017-08-28] MEDS ORDERED: OXYTOCIN 30 UNITS/500ML NSS IV PRN (04:00)
[2017-08-28] MEDS ORDERED: MISOPROSTOL 200 MCG TAB PR SCH (04:00)
[2017-08-28] MEDS ORDERED: LANOLIN OINT EXT PRN ×2 (04:00)
[2017-08-28 05:15] VITALS: BP 122/78; PULSE 81; TEMP 37.3
[2017-08-28] MEDS: IBUPROFEN 600 MG TAB PO PRN ×3 (05:21→18:41)
[2017-08-28 07:45] VITALS: BP 114/75; PULSE 83; TEMP 37.2
--- NOTE | 2017-08-28 07:56 | OB/GYN Progress Note ---
SPECIAL AGENT Progress Note Date of Service Aug 28, 2017. Subjective conversation w/ patient, physical exam Ambulation: limited ambulation Passing Gas: Yes Diet Tolerance: Regular Diet Lochia: Small Feeding Type: Breast Feeding Objective Vital Signs Date Time Temp Pulse Resp B/P (MAP) Pulse Ox O2 Delivery O2 Flow Rate FiO2 08/28/17 05:15 Room Air 08/28/17 05:15 37.3 81 16 122/78 (93) Room Air Physical Exam General Appearance: NO APPARENT DISTRESS Abdomen: non tender Fundus: Firm Extremities: non-tender, normal inspection, no pedal edema Laboratory Results Last 24 Hours Test 08/27/17 15:46 White Blood Count 8.79 K/uL Red Blood Count 3.90 M/uL Hemoglobin 11.8 g/dL Hematocrit 34.0 % Mean Corpuscular Volume 87.2 fL Mean Corpuscular Hemoglobin 30.3 pg Mean Corpuscular Hemoglobin Concent 34.7 g/dl RDW Standard Deviation 41.3 fL RDW Coefficient of Variation 13.0 % Platelet Count 213 K/uL Mean Platelet Volume 8.6 fL Assessment and Plan Post- Day Number: 1 Continue Routine Care: advance diet and care
--- NOTE | 2017-08-28 07:59 | Anesthesia Procedure Note ---
Anesthesia Epidural Removal Nt Date & Time Aug 28, 2017 at 07:58 Vital Signs Pain Intensity: 4.0 Vital Signs Past 12 Hours Date Time Temp Pulse Resp B/P (MAP) Pulse Ox O2 Delivery O2 Flow Rate FiO2 08/28/17 05:15 Room Air 08/28/17 05:15 37.3 81 16 122/78 (93) Room Air Notes Mental Status: alert / awake / arousable, participated in evaluation Nausea / Vomiting: adequately controlled Pain: adequately controlled Airway Patency, RR, SpO2: stable & adequate BP & HR: stable & adequate Hydration State: stable & adequate Neuraxial Anesthesia: was administered Anesthetic Complications: no major complications apparent, pt satisfied with anesthetic care Epidural: removed without complications, with tip intact
[2017-08-28] MEDS: DOCUSATE SODIUM 100 MG CAP PO SCH ×2 (08:29→19:47)
[2017-08-28] MEDS: PRENATAL VITAMIN TAB PO SCH (08:29)
[2017-08-28] MEDS: FERROUS SULFATE 325 MG TAB PO SCH (08:29)
[2017-08-28 11:05] VITALS: BP 106/72; PULSE 92; TEMP 36.9
[2017-08-28 15:15] VITALS: BP 104/66; PULSE 90; TEMP 36.6
[2017-08-28 19:30] VITALS: BP 109/63; PULSE 109; TEMP 36.6; O2SAT 98
[2017-08-29 00:10] VITALS: BP 110/69; PULSE 97; TEMP 36.7; O2SAT 98
[2017-08-29] MEDS: IBUPROFEN 600 MG TAB PO PRN ×5 (00:11→23:45)
[2017-08-29 04:20] VITALS: BP 116/73; PULSE 80; TEMP 36.7
[2017-08-29 06:47] VITALS: BP 108/66; PULSE 92; TEMP 36.6; O2SAT 99
[2017-08-29 07:47] LABS: HEMATOCRIT 25.7 % (37-47)
[2017-08-29] MEDS: PRENATAL VITAMIN TAB PO SCH (08:01)
[2017-08-29] MEDS: DOCUSATE SODIUM 100 MG CAP PO SCH ×2 (08:01→19:15)
[2017-08-29] MEDS: FERROUS SULFATE 325 MG TAB PO SCH (08:01)
--- NOTE | 2017-08-29 10:16 | OB/GYN Progress Note ---
MANAGER [employer] Progress Note Date of Service Aug 29, 2017. Subjective conversation w/ patient, physical exam Ambulation: ambulating normally Voiding: no voiding problems Passing Gas: Yes Diet Tolerance: Regular Diet Lochia: Small Feeding Type: Breast Feeding Pain: 4/10 Notes: Doing well, no concerns. Pain well controlled. Tolerating regular diet. Ambulating without difficulty. Lochia decreasing. Objective Vital Signs Date Time Temp Pulse Resp B/P (MAP) Pulse Ox O2 Delivery O2 Flow Rate FiO2 08/29/17 08:05 Room Air 08/29/17 06:47 36.6 92 16 108/66 (80) 99 08/29/17 04:20 36.7 80 20 116/73 (87) Room Air 08/29/17 00:10 36.7 97 18 110/69 (83) Room Air 08/29/17 00:10 98 Room Air 08/28/17 19:30 36.6 109 18 109/63 (78) 98 Room Air 08/28/17 15:15 36.6 90 18 104/66 (79) 08/28/17 15:15 Room Air 08/28/17 11:05 36.9 92 18 106/72 (83) Room Air Physical Exam General Appearance: WELL-APPEARING Respiratory/Chest: chest non-tender, lungs clear Cardiovascular: regular rate, rhythm Abdomen: normal bowel sounds, soft Fundus: Firm Extremities: normal range of motion, non-tender, no calf tenderness Laboratory Results Last 24 Hours Test 08/29/17 07:10 Hemoglobin 8.5 g/dL Hematocrit 25.7 % Assessment and Plan Post- Day Number: 2 Continue Routine Care: -Continue routine care. -Anticipate d/c home tomorrow
[2017-08-29] MEDS ORDERED: MTR600X PO (10:17)
--- NOTE | 2017-08-29 10:18 | Discharge Instructions ---
Discharge Instructions Date of Service Aug 29, 2017. Admission Reason for Admission: Ruptured Membranes Discharge Discharge Diagnosis / Problem: Vaginal delivery Discharge Goals Goal(s): Routine recovery after delivery Medications Continue Dispensed Medications: supercream, dermaplast, tucks, lansinoh Activity Recommendations Activity Limitations: per Instructions/Follow-up section . Instructions / Follow-Up Instructions / Follow-Up ACTIVITY RECOMMENDATIONS: * Gradual return to full activity over the next 2-3 weeks. * No lifting - nothing heavier than baby over the next 2-3 weeks. * Do not engage in vigorous exercise, sexual activity or sports until cleared by your physician. * Do not drive or operate any motorized equipment until cleared by your physician. * You may shower/bathe daily. BREAST CARE: If you are not breast feeding: * Wear a supportive bra 24 hours a day for one to two weeks. * Avoid stimulating your breasts and nipples as much as possible during the first few weeks after delivery. * When taking a shower, have the warm water hit your back, not breasts. * When your breasts feel full, apply ice packs. Usually three to four times a day helps ease the discomfort. * Take a mild pain medication (Tylenol/Motrin) when you are uncomfortable. If breast feeding: * Use breast milk to lubricate nipples. Lansinoh cream may be used for sore nipples. You do not need to remove cream prior to breast feeding. If using a different brand of cream, check the label for directions regarding removal of cream prior to nursing. * Wear a supportive bra. * If having problems with breasts or breast feeding, call a test consultant or your health care provider. EPISIOTOMY CARE: After delivery, if you have an episiotomy (stitches), the following steps will ease discomfort and aid healing. * For the first 24 hours after delivery, place ice packs next to your episiotomy to help reduce swelling. * After the first 24 hour-period, sitz baths, either portable or in the tub, are suggested. A shower with a shower arm sprayed over the episiotomy may be comforting. * Hannah care should be done after each voiding and bowel movement. Squirt warm water from a plastic bottle over the perineum (region of the body between the anus and urinary opening) and pat dry. * Use Dermoplast to ease discomfort. Shake container. [place] directly over the episiotomy. * Place a Tucks on a clean sanitary pad next to your episiotomy. OVER THE COUNTER MEDICATION: * For discomfort or pain, you may use Acetaminophen (Tylenol), Ibuprofen (Advil ), or Naproxen (Aleve) following the package directions. * For constipation you may use Colace following the package directions. SPECIAL CARE INSTRUCTIONS: When you are discharged from the hospital, it is important for you to follow the instructions listed below: * During the first week at home, you should be able to care for yourself and your baby. In addition, the usual light household activities are encouraged. * Limit your activities to the way you feel. Do not try to clean the house or move furniture. Be sensible. * If you actively engage in sports and have done so up until the time of your delivery, you may resume these activities as soon as you feel able. This may take up to one month or even longer. Use good judgment. * Continue to take your vitamins for at least six weeks after the of your baby. * Your diet need not be limited unless you were on a special diet before your delivery. Breast-feeding mothers need around 2500 calories per day and at least 64-80 ounces of fluid per day (8 to 10 glasses). * You should eat foods from the four major food groups. Crash diets or fad diets are to be avoided. Eating lean meats, fresh fruits and vegetables, low-fat dairy products, high fiber foods and a regular exercise program, will help you get back to your pre- weight without putting your health at risk. * Constipation is sometimes a problem after delivery. Take a mild laxative as needed. If breast feeding, Milk of Magnesia is acceptable to use. You may use a suppository or Fleets enema if no episiotomy. * A daily shower or tub bath is suggested. Be sure to thoroughly and gently dry the perineum. * A bloody vaginal discharge will usually continue until around four weeks post . A small amount of bleeding may continue for as long as six weeks. Vaginal discharge changes from the bright red bleeding after delivery to pink then brownish and finally yellowish-pink before becoming white and disappearing. * Bleeding may increase with activity. Your first period may come in 4-8 weeks. If you are breast feeding, your period may be delayed even longer. * [place] (sex) can begin whenever both you and your partner feel comfortable and do not have any form of genital infection. It is recommended that you wait until after your return appointment and discuss with your physician. If you have questions, please talk to your health care practitioner. A condom should be used to prevent infection and . * Foreplay, gentle intercourse and lubrication is very important the first several times to prevent pain. A water-based lubricant such as K-Y jelly or Astroglide may be used. * Tampons may be used six weeks after delivery. * Douching should be avoided for 6 weeks after delivery. * If you have RH negative blood and your baby is RH positive, you will receive RHOGAM by injection prior to discharge. The nurse will give you a card to keep with you that has the date and place that you received RHOGAM after delivery. * During your care, you had a Rubella screen done to check for the presence of rubella antibodies in your blood. If your test was negative, you will receive a Rubella vaccine prior to discharge. This vaccine may cause a fever, soreness at the injection site and flu-like symptoms. If these symptoms persist, notify your health care practitioner. is not advised for three months after a Rubella vaccine. There is a higher chance of having a baby with defects if conceived within three months of getting the vaccine. * If you were discharged 24 hours from delivery or before 48 hours: Visiting nurses will come to your home 48 hours after discharge to assess you and your baby. The visiting nurse will meet with you while you are in the hospital to arrange a time and get directions to your home. * Verbalizes understanding of car seat law as reviewed with patient nursing. * Car Seat hand-out given and reviewed with patient by nursing. * Shaken baby information reviewed with patient by nursing. Call you doctor if: * Heavy bleeding (saturating several pads an hour) or passing clots the size of your fist. * A fever >101 degrees F (38.3 degrees C) on two occasions four hours apart and/or chills. * Unusual pain in the pelvic or vaginal areas. * "Baby Blues" lasting longer than two weeks. If you have any questions or concerns, call your health care practitioner at . FOLLOW-UP VISIT: * Please call the office at to schedule a 6 week examination. It is important you keep this appointment. * It is important for you to make arrangements for either yearly or twice yearly check-ups thereafter. Current Hospital Diet Patient's current hospital diet: Regular OB Diet Discharge Diet Recommended Diet: Regular OB Diet Pending Studies Studies pending at discharge: no Medical Emergencies . Who to Call and When: Medical Emergencies: If at any time you feel your situation is an emergency, please call 911 immediately. . Non-Emergent Contact Non-Emergency issues call your: Primary Care Provider, [employer] Operator . . "Provider Documentation" section prepared by Marcus Peterson. . VTE Core Measure Inpt VTE Proph given/why not?: Treatment not indicated
[2017-08-29 16:55] VITALS: BP 103/66; TEMP 36.8
[2017-08-29] MEDS ORDERED: BISACODYL 5 MG TABEC PO SCH (20:00)
[2017-08-30 01:16] VITALS: BP_SYST 101; BP_SYST 97; BP_DIAS 57; BP_DIAS 65; PULSE 76; PULSE 77; TEMP 36.4; TEMP 37.1
[2017-08-30 06:55] LABS: HEMATOCRIT 25.7 % (37-47); MEAN CELL VOLUME 88.6 fL (80-100); MEAN CORPUSCULAR HEMOGLOBIN 29.7 pg (25-34); MEAN CORPUSCULAR HGB CONC 33.5 g/dl (32-36); MEAN PLATELET VOLUME 8.4 fL (7.4-10.4); PLATELET COUNT 197 K/uL (130-400); WHITE BLOOD COUNT 9.36 K/uL (4.8-10.8)
[2017-08-30] MEDS ORDERED: BISACODYL 10 MG SUPP PR PRN (07:00)
[2017-08-30 07:20] VITALS: BP 106/77; PULSE 86; TEMP 36.6
[2017-08-30] MEDS: DOCUSATE SODIUM 100 MG CAP PO SCH (08:28)
[2017-08-30] MEDS: PRENATAL VITAMIN TAB PO SCH (08:28)
[2017-08-30] MEDS: FERROUS SULFATE 325 MG TAB PO SCH (08:28)
[2017-08-30] MEDS: IBUPROFEN 600 MG TAB PO PRN (08:29)
--- NOTE | 2017-08-30 10:38 | OB/GYN Progress Note ---
[employer] Progress Note Date of Service Aug 30, 2017. Subjective conversation w/ patient Ambulation: ambulating normally Voiding: no voiding problems Passing Gas: Yes Diet Tolerance: Regular Diet Lochia: Small Feeding Type: Breast Feeding Pain: 12/19 Notes: Doing well, no concerns. Would like to go home today. Review of Systems Constitutional: No fever, No chills, No sweats, No weight loss, No weakness, No fatigue, No problem reported Respiratory: No cough, No sputum, No wheezing, No shortness of breath, No dyspnea on exertion, No dyspnea at rest, No hemoptysis, No problem reported Cardiac: No chest pain, No orthopnea, No PND, No edema, No claudication, No palpitations, No problem reported Abdomen: No pain, No nausea, No vomiting, No diarrhea, No constipation, No GI bleeding, No problem reported Female : No see HPI, No dysuria, No urinary frequency, No hematuria, No incontinence, No abnormal vaginal bleeding, No vaginal discharge, No problem reported Objective Vital Signs Date Time Temp Pulse Resp B/P (MAP) Pulse Ox O2 Delivery O2 Flow Rate FiO2 08/30/17 01:22 Room Air 08/30/17 01:16 37.1 77 18 101/65 (77) Room Air 08/29/17 16:55 36.8 16 103/66 (78) Room Air 08/29/17 16:55 Room Air Laboratory Results Last 24 Hours Test 08/30/17 06:44 White Blood Count 9.36 K/uL Red Blood Count 2.90 M/uL Hemoglobin 8.6 g/dL Hematocrit 25.7 % Mean Corpuscular Volume 88.6 fL Mean Corpuscular Hemoglobin 29.7 pg Mean Corpuscular Hemoglobin Concent 33.5 g/dl RDW Standard Deviation 42.4 fL RDW Coefficient of Variation 13.2 % Platelet Count 197 K/uL Mean Platelet Volume 8.4 fL Assessment and Plan Post- Day Number: 3 Continue Routine Care: -D/C home today -F/U in 6 weeks.
[2017-08-30 14:34] VITALS: BP_DIAS 77; PULSE 86; TEMP 36.6
== END 2017-08-30 14:30 | disposition home or self-care (01) | DRG 775 ==
LOC: C.LD 13:38 → C.OPB 13:38 → C.LD 15:24 → C.OPB 15:24 → C.OBG 08-28 05:31
PROVIDERS: ADMIT Obstetrics & Gynecology; ATTEND Obstetrics & Gynecology
PROC: 10E0XZZ Delivery of Products of Conception, External Approach (ICD-10-PCS; principal; 2017-08-27)
PROC: 3E033VJ Introduction of Other Hormone into Peripheral Vein, Percutaneous Approach (ICD-10-PCS; principal; 2017-08-27)
DX: O48.0 Post-term pregnancy (principal); Z3A.40 40 weeks gestation of pregnancy

== ENCOUNTER 2018-07-05 20:31 | Emergency (ER) | payer OTHER ==
[~2018-07-05] VITALS: Ht 160 cm; Wt 48.1 kg
[~2018-07-05 20:31] MED LIST changes: +MTR600X PO
[2018-07-05 20:37] VITALS: TEMP 37; Ht 160 cm; Wt 48.1 kg
[2018-07-05] MEDS ORDERED: SODIUM CHLORIDE 0.9% 1000ML 1,000 ML IV STA (21:10)
--- NOTE | 2018-07-05 21:20 | EMERGENCY ROOM VISIT NOTE ---
ED Visit Note First contact with patient: 20:52 CHIEF COMPLAINT: Low abdominal pain, HISTORY OF PRESENTING ILLNESS: This is a 23-year-old female who presents to the emergency department by private vehicle with complaint of abdominal pain that started yesterday. She states 2 days ago that she took a home test because "my boobs were sore and were leaking and I thought I might be . " She states that her abdominal pain is across the entire lower abdomen, she describes it as constant and a dull ache with occasional sharp stabbing pains. She has a long history of irregular periods, so she she states that she is unsure of her last period and is not sure how far along she might be. Denies any back pain. She denies any vaginal bleeding, spotting, or abnormal discharge. She denies any fevers or chills. She denies any urinary symptoms. She denies any chest pain, shortness of breath, dizziness, or syncope. She denies any nausea/vomiting, diarrhea, constipation, bloody or black stools. She is and reports a miscarriage at 10 weeks and 2013. Her child was born 10 months ago. REVIEW OF SYSTEMS: A complete 10 point review of systems was reviewed with the patient with pertinent positives and negatives as per history of present illness. All else were negative. PAST MEDICAL HISTORY: Reviewed in chart, see problem list below. SOCIAL HISTORY: Lives at home. She denies tobacco use, alcohol or recreational drug use. ALLERGIES: No known allergies. PHYSICAL EXAM: CONSTITUTIONAL: Pleasant and cooperative. No acute distress. Well-hydrated, well appearing and well nourished. HEENT: Normocephalic, atraumatic. Pupils equal, round and reactive to light, EOMI. TMs normal. Pharynx normal. Moist mucous membranes. NECK: Supple, full active range of motion without discomfort. RESPIRATORY: Clear to auscultation bilaterally with no wheezing, crackles, rhonchi or stridor. Equal expansion bilaterally. CARDIOVASCULAR: Regular rate and rhythm with no murmurs, rubs or gallops. Normal peripheral perfusion. No edema. GASTROINTESTINAL: Mild generalized tenderness of the suprapubic and bilateral lower quadrants to palpation, no rebound tenderness or guarding. Soft, nondistended. No palpable masses or HSM. Bowel sounds present in all quadrants. No CVA tenderness bilaterally. PELVIC EXAM: Deferred per patient request. MUSCULOSKELETAL: Full range of motion of all joints without discomfort. INTEGUMENTARY: No rash or other significant dermatologic conditions noted. NEUROLOGIC: Alert and oriented X 4 with normal affect. Normal strength and sensation in all 4 extremities. No focal neurologic deficits noted. Normal speech. Normal gait observed. ED COURSE AND MEDICAL DECISION MAKING: CC: Patient presenting with complaint of low abdominal pain, DIFFERENTIAL DIAGNOSIS: Includes, but not limited to ectopic , ovarian cyst, ovarian torsion, threatened miscarriage, normal pain of , appendicitis, diverticulitis, among others. INTERPRETATION OF LABS: No leukocytosis, no anemia, normal platelets, no significant electrolyte abnormalities, normal renal function, mildly elevated T bili, liver enzymes are otherwise normal. Urine is POSITIVE. Beta hCG quant is elevated (655) consistent with very early . UA is negative for infection. IMAGING: PELVIC ULTRASOUND CLINICAL HISTORY: Positive test with pelvic pain and irregular periods. COMPARISON STUDY: Pelvic ultrasound December 07, 2008. TECHNIQUE: Transabdominal and transvaginal sonography of the pelvis was performed. FINDINGS: Uterus measures 6.8 x 3.6 x 3.9 cm. The endometrium is thickened, measuring 1.5 cm in thickness. No definite intrauterine gestational sac is noted. There are a few tiny cystic foci within the endometrium. The left ovary is normal, measuring 2.3 x 2 x 1.4 cm. The right ovary measures 4.2 x 2.3 x 2.1 cm contains a 2.5 cm suspected corpus luteal cyst. Color flow is identified within each ovary. There was no free fluid. There was no adnexal mass. IMPRESSION: 1. No definite intrauterine gestational sac. However, several tiny cystic foci within the endometrium. These are nonspecific and a tiny gestational sac cannot be excluded. No adnexal mass. Given positive test, differential considerations include a normal early intrauterine gestation, missed spontaneous and sonographically occult ectopic . Close clinical follow-up, including serial beta hCG levels and pelvic ultrasound is recommended. 2. 2.5 cm suspected corpus luteal cyst within the right ovary. No adnexal mass. No free fluid. MEDICATION RECONCILIATION: I attest that I have personally reviewed the patient 's current medication list. INITIAL VITAL SIGNS REVIEW: I reviewed the patient's initial vital signs and interpret them as follows: T: Afebrile; BP: Normotensive; HR: Mildly tachycardic; RR: Within normal limits; Pulse Ox: Within normal limits on room air. Blood pressure screening: The patient was found to have normal blood pressure on screening and does not require follow-up for repeat blood pressure check. SUMMARY: Patient was evaluated at bedside, history and physical exam performed. Patient is alert and oriented, in no acute distress, resting calmly in the stretcher. Patient has mild tenderness of the diffuse lower abdomen, but no McBurney's point tenderness, no rebound or guarding, no acute abdomen. She denies any vaginal bleeding or spotting. Orders were placed at bedside for labs, UA and urine , beta hCG quant, IV fluids for hydration, pelvic ultrasound to evaluate for ectopic . Patient discussed with Dr. Trinidad, who agrees with my assessment and plan. Labs and imaging reviewed as above, no definite intrauterine gestational sac identified, so ectopic cannot be definitively ruled out, though she may also just be too early given her quant level of 655. Review of the patient's chart notes that she is Rh- blood type, however she has not had any bleeding or spotting to indicate a need for RhoGam. I spoke on the phone with Dr. Godoy, [employer]PER[employer], he recommends that the patient call the office tomorrow and they can get her an appointment to follow up. He did not recommend RhoGam, since she is not bleeding. Patient reassessed multiple times throughout ED stay, she has remained stable, and states that her pain has resolved since being evaluated. Patient was updated on all results and plan for discharge, she was encouraged to follow closely with [employer] and to call tomorrow for an appointment. Patient was also given strict return precautions should her symptoms worsen, she verbalized understanding. Patient was discharged home in stable condition and ambulatory. Problem List Medical Problems: (1) Miscarriage Status: Resolved (2) Urinary tract infection Status: Resolved Surgical Problems: (1) H/O dilation and curettage Status: Resolved Current/Historical Medications No Active Prescriptions or Reported Meds Allergies Coded Allergies: No Known Allergies (Verified , 08/29/17) Vital Signs Date Time Temp Pulse Resp B/P (MAP) Pulse Ox O2 Delivery O2 Flow Rate FiO2 07/05/18 22:59 71 24 102/69 99 Room Air 07/05/18 21:34 70 07/05/18 21:30 71 22 106/70 93 Room Air 07/05/18 20:37 37.0 104 18 134/74 96 Room Air Laboratory Results 07/05/18 21:32 Red Blood Count 4.76, Mean Corpuscular Volume 86.1, Mean Corpuscular Hemoglobin 30.5, Mean Corpuscular Hemoglobin Concent 35.4, Mean Platelet Volume 9.6, Neutrophils (%) (Auto) 61.7, Lymphocytes (%) (Auto) 28.2, Monocytes (%) (Auto) 8.7, Eosinophils (%) (Auto) 0.8, Basophils (%) (Auto) 0.5, Neutrophils # (Auto) 4.52, Lymphocytes # (Auto) 2.07, Monocytes # (Auto) 0.64, Eosinophils # (Auto) 0.06, Basophils # (Auto) 0.04 07/05/18 21:32 Test 07/05/18 21:11 07/05/18 21:32 Urine Color YELLOW Urine Appearance CLEAR (CLEAR) Urine pH 8.0 (4.5-7.5) Urine Specific [place] 1.007 (1.000-1.030) Urine Protein NEG (NEG) Urine Glucose (UA) NEG (NEG) Urine Ketones NEG (NEG) Urine Occult Blood NEG (NEG) Urine Nitrite NEG (NEG) Urine Bilirubin NEG (NEG) Urine Urobilinogen NEG (NEG) Urine Leukocyte Esterase NEG (NEG) White Blood Count 7.34 K/uL (4.8-10.8) Red Blood Count 4.76 M/uL (4.2-5.4) Hemoglobin 14.5 g/dL (12.0-16.0) Hematocrit 41.0 % (37-47) Mean Corpuscular Volume 86.1 fL (80-100) Mean Corpuscular Hemoglobin 30.5 pg (25-34) Mean Corpuscular Hemoglobin Concent 35.4 g/dl (32-36) Platelet Count 258 K/uL (130-400) Mean Platelet Volume 9.6 fL (7.4-10.4) Neutrophils (%) (Auto) 61.7 % Lymphocytes (%) (Auto) 28.2 % Monocytes (%) (Auto) 8.7 % Eosinophils (%) (Auto) 0.8 % Basophils (%) (Auto) 0.5 % Neutrophils # (Auto) 4.52 K/uL (1.4-6.5) Lymphocytes # (Auto) 2.07 K/uL (1.2-3.4) Monocytes # (Auto) 0.64 K/uL (0.11-0.59) Eosinophils # (Auto) 0.06 K/uL (0-0.5) Basophils # (Auto) 0.04 K/uL (0-0.2) RDW Standard Deviation 40.3 fL (36.4-46.3) RDW Coefficient of Variation 12.7 % (11.5-14.5) Immature Granulocyte % (Auto) 0.1 % Immature Granulocyte # (Auto) 0.01 K/uL (0.00-0.02) Anion Gap 9.0 mmol/L (3-11) Est Creatinine Clear Calc Drug Dose 119.7 ml/min Estimated GFR () > 150.0 Estimated GFR (Non- 132.4 BUN/Creatinine Ratio 21.4 (10-20) Calcium Level 8.7 mg/dl (8.5-10.1) Total Bilirubin 1.1 mg/dl (0.2-1) Aspartate Amino Transf (AST/SGOT) 33 U/L (15-37) Alanine Aminotransferase (ALT/SGPT) 43 U/L (12-78) Alkaline Phosphatase 87 U/L (45-117) Total Protein 7.9 gm/dl (6.4-8.2) Albumin 3.9 gm/dl (3.4-5.0) Globulin 4.0 gm/dl (2.5-4.0) Albumin/Globulin Ratio 1.0 (0.9-2) Human Chorionic Gonadotropin, Qual POS (NEG) Human Chorionic Gonadotropin, Quant 655 mIU/mL Medications Administered Medications (Trade) Dose Ordered Sig/Myla Route Start Time Stop Time Status Last Admin Dose Admin Sodium Chloride 1,000 ml @ 999 mls/hr Q1H1M STAT IV 07/05/18 21:10 07/05/18 22:10 DC 07/05/18 21:28 999 MLS/HR Departure Information Impression Primary Impression: Abdominal pain during in first trimester Additional Impression: Corpus luteum cyst of right ovary Dispostion Home / Self-Care Condition GOOD Prescriptions No Active Prescriptions or Reported Meds Referrals No Doctor, Assigned (PCP) Carmine Godoy MD Patient Instructions ED Abdominal Pain Rule Out Ectopic, My [facility] Additional Instructions You have been evaluated and treated in the Emergency Department today for your abdominal pain. Laboratory results and imaging studies have ruled out any emergent causes for your symptoms which would warrant admission or surgery. The ultrasound did show a small cyst on your right ovary which could be the cause of your pain. However, we were unable to identify your on the ultrasound. This may mean that your is too early to detect, but we cannot rule out a possible miscarriage or ectopic at this time. It is important for you to follow-up closely with your OB office this week. Please call tomorrow to set up an appointment. You may take Tylenol 650 mg every 4-6 hours as needed for abdominal pain. Do not take more than 3000 mg in 24 hours. You may also apply a heating pad to your abdomen for comfort. Please return to the ER for any worsening symptoms, including severe worsening abdominal pain, if you have ANY vaginal bleeding or spotting, especially heavy vaginal bleeding (soaking through more than 1 pad per hour), dizziness or passing out, fevers/chills/feeling ill, or any other concerns. Work Instructions Return To Work: 2 days Problem Qualifiers
[2018-07-05 21:41] LABS: BASO % 0.5 %; BASO ABS # 0.04 K/uL (0-0.2); EOS % 0.8 %; EOS ABS # 0.06 K/uL (0-0.5); HEMOGLOBIN 14.5 g/dL (12.0-16.0); IG# 0.01 K/uL (0.00-0.02); LYMPH % 28.2 %; LYMPH ABS # 2.07 K/uL (1.2-3.4); MEAN CELL VOLUME 86.1 fL (80-100); MEAN CORPUSCULAR HEMOGLOBIN 30.5 pg (25-34); MEAN CORPUSCULAR HGB CONC 35.4 g/dl (32-36); MEAN PLATELET VOLUME 9.6 fL (7.4-10.4); MONO % 8.7 %; MONO ABS # 0.64 K/uL (0.11-0.59); NEUT % 61.7 %; NEUT ABS # 4.52 K/uL (1.4-6.5); PLATELET COUNT 258 K/uL (130-400); RED CELL DISTRIBUTION WIDTH CV 12.7 % (11.5-14.5); RED CELL DISTRIBUTION WIDTH SD 40.3 fL (36.4-46.3); WHITE BLOOD COUNT 7.34 K/uL (4.8-10.8)
[2018-07-05 22:01] LABS: ALBUMIN 3.9 gm/dl (3.4-5.0); ALKALINE PHOSPHATASE 87 U/L (45-117); ALT/SGPT 43 U/L (12-78); AST/SGOT 33 U/L (15-37); BLOOD UREA NITROGEN 12 mg/dl (7-18); CALCIUM 8.7 mg/dl (8.5-10.1); CARBON DIOXIDE 21 mmol/L (21-32); CREATININE 0.56 mg/dl (0.60-1.20); GLUCOSE 84 mg/dl (70-99); POTASSIUM 3.8 mmol/L (3.5-5.1); SODIUM 139 mmol/L (136-145); TOTAL PROTEIN 7.9 gm/dl (6.4-8.2)
--- NOTE | 2018-07-05 22:51 | DIAGNOSTIC IMAGING REPORT ---
PELVIC ULTRASOUND CLINICAL HISTORY: Positive test with pelvic pain and irregular periods. COMPARISON STUDY: Pelvic ultrasound December 07, 2008. TECHNIQUE: Transabdominal and transvaginal sonography of the pelvis was performed. FINDINGS: Uterus measures 6.8 x 3.6 x 3.9 cm. The endometrium is thickened, measuring 1.5 cm in thickness. No definite intrauterine gestational sac is noted. There are a few tiny cystic foci within the endometrium. The left ovary is normal, measuring 2.3 x 2 x 1.4 cm. The right ovary measures 4.2 x 2.3 x 2.1 cm contains a 2.5 cm suspected corpus luteal cyst. Color flow is identified within each ovary. There was no free fluid. There was no adnexal mass. IMPRESSION: 1. No definite intrauterine gestational sac. However, several tiny cystic foci within the endometrium. These are nonspecific and a tiny gestational sac cannot be excluded. No adnexal mass. Given positive test, differential considerations include a normal early intrauterine gestation, missed spontaneous and sonographically occult ectopic . Close clinical follow-up, including serial beta hCG levels and pelvic ultrasound is recommended. 2. 2.5 cm suspected corpus luteal cyst within the right ovary. No adnexal mass. No free fluid. Electronically signed by: Rey Rowley M.D. 07/05/2018 10:50 PM Dictated Date/Time: 07/05/2018 10:45 PM
[2018-07-05 23:31] VITALS: BP 104/68; PULSE 87; O2SAT 98
== END 2018-07-05 23:31 | disposition home or self-care (01) ==
LOC: C.EDB 20:32
DX: R10.84 Generalized abdominal pain (principal); N83.11 Corpus luteum cyst of right ovary

== ENCOUNTER 2019-03-09 00:50 | Inpatient (IN) ==
--- OUTSIDE RECORDS SUMMARY | 2019-03-09 00:55 | External Medical Summary | Continuity of Care Document ---
:1995 Author Name Gwen Bravo Address Unavailable Unavailable , Care Team Providers Name Role Phone Unavailable Unavailable Unavailable Kirk ZAZUETA Unavailable [email or web address] ANA MAIRA Bravo, S Unavailable Unavailable Unavailable Unavailable Unavailable Problems Anxiety (300.00) (F41.9) Abnormal weight gain (783.1) (R63.5) Need for prophylactic immunotherapy (V07.2) (Z29.8) Contraceptive use (V25.40) (Z30.40) Rash (782.1) (R21) Weight loss (783.21) (R63.4) Depression (311) (F32.9) Encounter for screening for infections w ith predominantly sexual mode of transmission (V74.5) (Z11.3) Encounter for routine gynecological examination (V72.31) (Z0 1.419) Missed (632) (O02.1) Allergies and Adverse Reactions No Known Drug Allergies (Allergy) Medications Azurette 0.15-0.02/0.01 MG (29/03) Oral T ablet; TAKE ONE TABLET BY MOUTH ONE TIME DAILY CARLITA Bradley Start: 27-Mar-2015 Quantity: 28 Refills: 5 Procedures History of Patient Education - Dietary S tatus: Completed History of Exercise Counseling Status: C ompleted Need for prophylactic immunotherapy History of Encounter for initial prescription of contracepti ves Status: Completed History of Dilation And Curettage Status : Completed Immunizations DTaP On: 1996 IPV On: 1996 DTaP On: 1996 IPV On: 1996 DTaP On: 1996 Varicella On: 08-Mar-1997 DTaP On: 12-Dec-1997 IPV On: 12-Dec-1997 MMR On: 12-Dec-1997 DTaP On: 07-Jul-2002 MMR On: 07-Jul-2002 Influenza On: 09-Dec-2006 IPV On: 06-Jan-2007 Varivax 1350 PFU/0.5ML Subcutaneous Injectable On: 30-Sep-20 14:40 Lot #: [id number], [employer] Influenza (Whole) On: 30-Sep-2011 14:39 Lot #: [id number], [employer] Hepatitis A On: 30-Sep-2011 14:39 Lot #: [id number], [employer] HPV (Gardasil) On: 30-Sep-2011 14:39 Lot #: [id number], [employer] Adacel 5-2-15.5 LF-MCG/0.5 Intramuscular Suspension On: 10:47 Lot #: [id number], [employer] Hepatitis A On: 17-May-2012 10:48 Lot #: [id number], [employer] [facility] HPV (Gardasil) On: 17-May-2012 10:48 Lot #: [id number], [employer] Menactra Intramuscular Injectable On: 17-May-2012 10:48 Lot #: [id number], [employer] HPV (Gardasil) On: 24-Feb-2013 15:19 Lot #: [id number], [employer] Family History Father Family history of Anxiety Which Interferes With Social Activities Status: Active Family history of Nephrolithiasis Status: Active aunt Family history of Cervical Cancer Status: Active Family history of Ovarian Cancer (V16.41) Status: Active Family history of Thyroid Cancer Status: Active Grandfather Family history of Nephrolithiasis Status: Active Social History - Smoking Status Never smoker Plan of Treatment Planned Observations Planned Goals not documented Results No Known Results Results not documented
[2019-03-09] MEDS ORDERED: OXYTOCIN 30 UNITS/500 ML BAG IV PRN ×3 (02:36→14:52)
[2019-03-09] MEDS ORDERED: LACTATED RINGER'S 1,000 ML IV PRN ×3 (02:36→10:06)
--- NOTE | 2019-03-09 02:43 | Obstetrical Progress Note ---
Date of Service March 09, 2019 Subjective Admit Note 24 F P1011 at 39.2 weeks admitted for SROM and no contractions. GBS is negative. FHT Cat 1. Patient grossly Nitrazine positive after ambulating in hallway. Patient will be admitted she will be able to or rest as needed. Results & Data Vital Signs (Past 12 Hours) Vital Signs Temp Pulse Resp BP 03/09/19 01:11 36.7 C 101 H 18 111/68 03/09/19 01:09 101 H 111/68
[2019-03-09 02:57] LABS: Hematocrit (blood only) 33.1 % (37-47); Hemoglobin 11.7 g/dL (12.0-16.0); Mean Corpuscular Volume 87.8 fL (80-100); Mean Platelet Volume 9.1 fL (7.4-10.4); Platelet Count 199 K/uL (130-400); RDW Coefficient of Variation 13.3 % (11.5-14.5); RDW Standard Deviation 42.4 fL (36.4-46.3); Red Blood Count 3.77 M/uL (4.2-5.4); White Blood Count 9.64 K/uL (4.8-10.8)
[2019-03-09 03:08] LABS: Mean Corpuscular Hgb Conc 35.3 g/dL (32-36)
--- NOTE | 2019-03-09 05:57 | Obstetrical Progress Note ---
Date of Service March 09, 2019 Subjective doing well Physical Exam Constitutional: WD/WN, vitals as above comfortable Genitourinary: OB Exam Abdomen: + estimated weight (7 lbs.) and + irregular contractions Manual OB Exam: + cervical dilation 5 cm, + cervical effacement 80%, + station -1 and + amniotic fluid clear OB Exam Monitor Tracing: + external FHT monitor used, + external uterine monitor used and + category I planning for epidural will start Oxytocin to augment contractions Results & Data Vital Signs (Past 12 Hours) Vital Signs Temp Pulse Resp BP 03/09/19 05:31 96 H 115/69 03/09/19 05:10 36.7 C 18 03/09/19 03:10 36.8 C 18 03/09/19 01:11 36.7 C 101 H 18 111/68 03/09/19 01:09 101 H 111
[2019-03-09] MEDS: LACTATED RINGER'S 1,000 ML IV SCH ×2 (06:19→09:36)
[2019-03-09] MEDS ORDERED: ePHEDrine sulfate 50 MG/ML AMP ONE (09:10)
[2019-03-09] MEDS ORDERED: BUPIVACAINE 0.25% 30 ML VIAL ONE (09:10)
[2019-03-09] MEDS ORDERED: fentaNYL 2MCG/ML ROPIV 1.25MG/ML 100 ML BAG EPI ONE (09:11)
[2019-03-09] MEDS ORDERED: fentaNYL citrate 100 MCG/2 ML VIAL ONE (09:11)
--- NOTE | 2019-03-09 10:02 | Anesthesiology Consultation ---
Date of Service March 09, 2019 Assessment & Plan Chart Review Chart Review: Acceptable Risk for Surgery Consults Requested none History Height/Weight Height: 5 ft 3 in Weight: 65.771 kg Allergies Allergy/AdvReac Type Severity Reaction Status Date / Time No Known Allergies Allergy Verified 08/29/17 08:02 Medications Home Medications Medication Instructions Recorded Confirmed Last Taken vit no.331-tocc-oazgo 1 tab PO DAILY 02/08/19 03/09/19 03/08/19 [ Vitamin] Active Medications Generic Name Dose Route Start Last Admin Trade Name Freq PRN Reason Stop Dose Admin Lactated Ringer's 1,000 mls @ 125 mls/hr 03/09/19 02:45 03/09/19 09:59 Lr IV 03/11/19 02:44 125 mls/hr .Q8H LINDA Infusion Oxytocin 30 units in 500 mls @ 5 mls/hr 03/09/19 05:52 03/09/19 08:45 Pitocin IV 03/11/19 05:51 0.3 units/hr .Q24H PRN 5 mls/hr Labor Induction/Augmentation Titration Protocol 0.3 UNITS/HR Social History Smoking Status: Never smoker Hx Alcohol Use: No Hx Substance Use: No Physical Exam Vital Signs Last Vital Signs Temp 36.5 C 03/09/19 09:20 Pulse 86 03/09/19 10:00 Resp 20 03/09/19 09:20 BP 113/66 03/09/19 10:00 Pulse Ox 99 03/09/19 09:59 Testing Laboratory Results 03/09/19 02:49
[2019-03-09] MEDS ORDERED: NALOXONE HCL 0.4 MG/1 ML VIAL/CARP IV PRN (10:06)
[2019-03-09] MEDS ORDERED: NALBUPHINE HCL INJ 10 MG/ML AMP IV PRN (10:06)
[2019-03-09] MEDS ORDERED: ONDANSETRON INJ 2 MG/ML 2 ML VIAL IV PRN (10:06)
[2019-03-09] MEDS ORDERED: fentaNYL 2MCG/ML ROPIV 1.25MG/ML 100 ML BAG EPI PRN (10:06)
[2019-03-09] MEDS ORDERED: DiphenhydrAMINE HCL 50 MG/ML VIAL IV PRN (10:06)
[2019-03-09] MEDS ORDERED: NALOXONE HCL 1 MG in SODIUM CHLORIDE 0.9% 1000ML 1,000 ML IV PRN (10:06)
[2019-03-09] MEDS ORDERED: ePHEDrine sulfate 50 MG/ML AMP IV PRN (10:06)
[2019-03-09] MEDS ORDERED: METHYLERGONOVINE MALEATE 0.2 MG/ML AMP ONE (14:42)
[2019-03-09] MEDS ORDERED: HYDROCORTISONE ACETATE 25 MG SUPP PR PRN (14:52)
[2019-03-09] MEDS ORDERED: BISACODYL 10 MG SUPP PR PRN (14:52)
[2019-03-09] MEDS ORDERED: ACETAMINOPHEN 325 MG TAB PO PRN (14:52)
[2019-03-09] MEDS ORDERED: BENZOCAINE 20% AER SPR 82.5 GM CAN EXT PRN (14:52)
[2019-03-09] MEDS ORDERED: DIPHTHERIA/TETANUS/PERTUSSIS 0.5 ML SYR/VIAL IM ONE (14:52)
[2019-03-09] MEDS ORDERED: METHYLERGONOVINE MALEATE 0.2 MG/ML AMP IM ONE (14:52)
[2019-03-09] MEDS ORDERED: miSOPROStol 200 MCG TAB PR ONE (14:52)
[2019-03-09] MEDS ORDERED: SUPERCREAM 0.870% 15 GM JAR EXT PRN (14:52)
--- NOTE | 2019-03-09 15:55 | Anesthesia Procedure Note ---
Date of Service March 09, 2019 Anesthesia Post Epidural Note Vital Signs Vital Signs: Temp Pulse Resp BP Pulse Ox 37.0 C 93 H 18 105/76 97 03/09/19 13:20 03/09/19 15:45 03/09/19 15:30 03/09/19 15:45 03/09/19 14:34 Pain Intensity Abdomen: Pain Intensity: 0 Notes Mental Status: alert / awake / arousable Nausea / Vomiting: adequately controlled Pain: adequately controlled Airway Patency, RR, SpO2: stable & adequate BP & HR: stable & adequate Hydration State: stable & adequate Neuraxial Anesthesia: was administered and sensory block is resolving Anesthetic Complications: no major complications apparent and Pt Satisfied with anesthetic care Epidural: Removed without complications and With tip intact
[2019-03-09] MEDS: IBUPROFEN 600 MG TAB PO PRN (17:01)
--- NOTE | 2019-03-09 17:56 | Delivery Summary ---
DATE OF OPERATION: 03/09/2019 DELIVERY NOTE The patient delivered a live is in left occiput anterior presentation. There was no nuchal cord. Infant was delivered, placed on mother's abdomen. Cord was clamped and cut after 1 minute. Cord blood was obtained. Placenta was spontaneously delivered. Inspection of the placenta shows a grossly normal looking placenta with 3-vessel cord. Inspection of the perineum shows no tear or lacerations. Estimated blood loss 600 mL. Rectal exam post repair shows good sphincter tone. All instruments were removed from the vagina and accounted for including sponges and retractors. Baby and mother are doing well in recovery. I attest to the content of the Intraoperative Record and any orders documented therein. Any exception s are noted below.
[2019-03-09] MEDS: DOCUSATE SODIUM 100 MG CAP PO SCH (20:20)
[2019-03-10 08:21] LABS: Hematocrit (blood only) 30.6 % (37-47); Hemoglobin 10.7 g/dL (12.0-16.0); Mean Corpuscular Volume 88.2 fL (80-100); Mean Platelet Volume 9.1 fL (7.4-10.4); Platelet Count 192 K/uL (130-400); RDW Coefficient of Variation 13.5 % (11.5-14.5); RDW Standard Deviation 43.5 fL (36.4-46.3); Red Blood Count 3.47 M/uL (4.2-5.4); White Blood Count 14.35 K/uL (4.8-10.8)
[2019-03-10] MEDS: DOCUSATE SODIUM 100 MG CAP PO SCH (08:21)
[2019-03-10] MEDS: IBUPROFEN 600 MG TAB PO PRN (08:21)
--- NOTE | 2019-03-10 08:44 | Obstetrical Progress Note ---
Date of Service March 10, 2019 Subjective Patient is seen and examined. She feels well, no complaints. Ambulating without dizziness Voiding without difficulty Tolerating regular diet with out N&V Bleeding is minimal No fever/ chills/ CP/ SOB/ N&V/ Leg pain Breast feeding without problems Vital Signs Temp Pulse Resp BP Pulse Ox 03/10/19 03:30 36.9 C 85 18 100/64 99 03/09/19 23:35 36.8 C 82 18 108/68 99 03/10/19 03/10/19 Range/Units 07:56 07:56 WBC 14.35 H (4.8-10.8) K/uL RBC 3.47 L (4.2-5.4) M/uL Hgb 10.7 L (12.0-16.0) g/dL Hct 30.6 L (37-47) % MCV 88.2 (80-100) fL MCH 30.8 (25-34) pg MCHC 35.0 (32-36) g/dL RDW Std Deviation 43.5 (36.4-46.3) fL RDW Coeff of Jose A 13.5 (11.5-14.5) % Plt Count 192 (130-400) K/uL MPV 9.1 (7.4-10.4) fL Blood Type Pending Antibody Screen Pending Screen Pending PE: General: Alert, orientedx3, NAD Abd: soft, NT, fundus firm, below Umbilicus Perineum intact, Lochia rubra minimal Ext; NT, no edema AP: 24 yo s/p , ppd# 1 VSS Afebrile doing well Continue routine care All questions were answered D/C home in am Results & Data Vital Signs (Past 12 Hours) Vital Signs Temp Pulse Resp BP Pulse Ox 03/10/19 03:30 36.9 C 85 18 100/64 99 03/09/19 23:35 36.8 C 82 18 108/68 99
[2019-03-10] MEDS ORDERED: PRENATAL VITAMIN 1 TAB PO SCH (09:00)
[2019-03-10] MEDS ORDERED: FERROUS SULFATE 325 MG TAB PO SCH (09:00)
--- NOTE | 2019-03-10 09:09 | Obstetrical Progress Note ---
Date of Service March 10, 2019 Subjective Patient desires to be discharged this evening after dinner Discharge instructions were reviewed Discussed when to call f/u in office Results & Data Vital Signs (Past 12 Hours) Vital Signs Temp Pulse Resp BP Pulse Ox 03/10/19 07:45 36.5 C 84 16 112/73 100 03/10/19 03:30 36.9 C 85 18 100/64 99 03/09/19 23:35 36.8 C 82 18 108/68 99
[2019-03-10] MEDS ORDERED: BISACODYL 5 MG TABEC PO SCH (20:00)
== END 2019-03-10 20:00 | disposition home or self-care (01) | DRG 807 ==
LOC: OPB 00:50 → 4S1 00:53 → 4S2 16:45

== ENCOUNTER 2022-03-24 03:18 | Inpatient (IN) ==
[2022-03-24] MEDS ORDERED: OXYTOCIN 30 UNITS/500 ML BAG IV PRN ×3 (03:54→10:09)
[2022-03-24] MEDS ORDERED: SODIUM CHLORIDE 0.9% INJ 10 ML VIAL ONE (04:04)
[2022-03-24] MEDS ORDERED: ePHEDrine sulfate 50 MG/ML AMP ONE (04:04)
[2022-03-24] MEDS ORDERED: fentaNYL citrate 100 MCG/2 ML VIAL ONE (04:04)
[2022-03-24] MEDS ORDERED: BUPIVACAINE 0.25% 30 ML VIAL ONE (04:04)
[2022-03-24] MEDS ORDERED: fentaNYL 2MCG/ML ROPIVACAINE 1.25MG/ML 100 ML BAG EPI ONE (04:05)
[2022-03-24] MEDS: LACTATED RINGER'S 1,000 ML IV PRN ×2 (04:06→05:35)
[2022-03-24 04:22] LABS: Hematocrit (blood only) 35.7 % (37-47); Hemoglobin 12.2 g/dL (12.0-16.0); Mean Corpuscular Hemoglobin 30.7 pg (25-34); Mean Corpuscular Hgb Conc 34.2 g/dL (32-36); Mean Corpuscular Volume 89.7 fL (80-100); Mean Platelet Volume 9.1 fL (7.4-10.4); Platelet Count 245 K/uL (130-400); RDW Coefficient of Variation 12.9 % (11.5-14.5); RDW Standard Deviation 41.9 fL (36.4-46.3); Red Blood Count 3.98 M/uL (4.2-5.4); White Blood Count 11.08 K/uL (4.8-10.8)
--- NOTE | 2022-03-24 04:22 | History & Physical Report ---
Date of Service March 24, 2022 History of Present Illness Chief Complaint: onset of labor Primary Care Provider: NO PCP 27 F P2002 at 39 weeks admitted in labor. GBS is negative. Covid is pending. Allergies Allergy/AdvReac Type Severity Reaction Status Date / Time No Known Allergies Allergy Verified 03/24/22 04:18 Home Medications Medication Instructions Recorded Confirmed Type vits no.124-ferrous fum 1 tab PO DAILY 02/08/19 03/24/22 History 27 mg iron-folic acid 800 mcg tablet ( Vitamin) Patient History Social History Smoking Status: Never smoker Hx Alcohol Use: No Hx Substance Use: No Preferred Language: Divehi Communication Ability: Effective String Laster Required: No Beliefs That Will Affect Care: None marital status: Current Living Situation: Spouse and Family Feels Safe at Home: Yes Safety Concerns: Feels Safe At This Time Assistive Devices: Glasses 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 History neg Review of Systems All systems reviewed & are unremarkable except as noted in HPI & below Physical Exam Constitutional: WD/WN, vitals as above Eyes: PERRL, conjunctivae normal, anicteric sclerae Respiratory: normal respiratory effort, lungs clear to auscultation Cardiovascular: RRR, no murmur, no edema Skin: no rashes, warm and dry Neurologic: patellar DTR's 2+ bilat, sensation intact Psychiatric: A+Ox3, euthymic affect Genitourinary: normal external appearance OB Exam Abdomen: + fundal height and + vertex Manual OB Exam: + cervical dilation 4 cm, + cervical effacement 90% and + station -1 OB Exam Monitor Tracing: + external FHT monitor used, + external uterine monitor used, + category I and + normal FHT variability Results & Data ([place]) Vital Signs (Past 12 Hours) Vital Signs Temp Pulse Resp BP 03/24/22 03:53 36.7 C 85 18 108/63 Monitoring External Monitor Cat 1
[2022-03-24] MEDS ORDERED: BUTORPHANOL TARTRATE 1 MG/ML VIAL IV STA (04:26)
[2022-03-24] MEDS ORDERED: fentaNYL 2MCG/ML ROPIVACAINE 1.25MG/ML 100 ML BAG EPI PRN (05:01)
[2022-03-24] MEDS ORDERED: ePHEDrine sulfate 50 MG/ML AMP IV PRN (05:01)
[2022-03-24] MEDS ORDERED: NALOXONE HCL 0.4 MG/1 ML VIAL/CARP IV PRN (05:01)
[2022-03-24] MEDS ORDERED: diphenhydrAMINE 50 MG/ML VIAL IV PRN (05:01)
[2022-03-24] MEDS ORDERED: NALBUPHINE HCL INJ 10 MG/ML AMP IV PRN (05:01)
[2022-03-24] MEDS ORDERED: ONDANSETRON INJ 2 MG/ML 2 ML VIAL IV PRN (05:01)
[2022-03-24] MEDS ORDERED: NALOXONE HCL 1 MG in SODIUM CHLORIDE 0.9% 1000ML 1,000 ML IV PRN (05:01)
--- NOTE | 2022-03-24 05:05 | Anesthesiology Consultation ---
Date of Service March 24, 2022 Assessment & Plan Chart Review Chart Review: Patient NOT seen in Pre Admission Testing and Acceptable Risk for Labor Epidural Consults Requested none ASA ASA2 Proposed Anesthesia Anesthesia Type: Labor Epidural and CSE Risk / Benefits Reviewed With: PT / POA / Parent / Guardian, Accepts Plan and Informed Consent Obtained History Height/Weight Height: 5 ft 3 in Weight: 68.039 kg Allergies Allergy/AdvReac Type Severity Reaction Status Date / Time No Known Allergies Allergy Verified 03/24/22 04:18 Medications Home Medications Medication Instructions Recorded Confirmed Last Taken vits no.124-ferrous fum 1 tab PO DAILY 02/08/19 03/24/22 03/23/22 27 mg iron-folic acid 800 mcg tablet ( Vitamin) Active Medications Generic Name Dose Route Start Last Admin Trade Name Freq PRN Reason Stop Dose Admin Lactated Ringer's 1,000 mls @ 125 mls/hr 03/24/22 03:54 03/24/22 04:06 Lr IV 03/26/22 03:53 999 mls/hr .Q8H PRN Administration L&D Protocol Protocol NPO Date Last Intake of Fluids: 03/24/22 Time Last Intake of Fluids: 04:00 Date Last Intake of Solids: 03/23/22 Time Last Intake of Solids: 20:00 Exercise / Class Metabolic Activity II 4-5 Yardwork/Stairs/Walk up hill Past Anesthesia History No Hx of Anesthesia Complications and No Family Hx of Anesthesia Complications History of PONV No Hx of PONV and No Hx of Motion Sickness Social History Smoking Status: Never smoker Hx Alcohol Use: No Hx Substance Use: No Review of Systems no chest pain or sob Physical Exam Vital Signs Last Vital Signs Temp 36.7 C 03/24/22 03:53 Pulse 85 03/24/22 03:53 Resp 18 03/24/22 03:53 BP 108/63 03/24/22 03:53 SpO2 97 ENMT Mouth: no TMJ abnormality Thyromental Distance: > or= 3.5 Finger Breadths Mallampati Class: II Neck normal visual inspection Respiratory normal respiratory effort Auscultation: lungs clear to auscultation bilaterally Cardiovascular Rate/Rhythm: regular rate and regular rhythm Musculoskeletal Spine: normal cervical ROM Neurologic moves all extremities Psychiatric Orientation: alert and oriented x 3 Testing Laboratory Results 03/24/22 04:13
--- NOTE | 2022-03-24 08:20 | Labor Progress Brief Note ---
Date of Service March 24, 2022 Assessment & Plan (1) : Plan: Met Pt and reviewed PNC FHR; CAT1 Ctx; 4-6mins VE; 5/100/-1 Starring Pitocin augmentation pt agrees with plan Admission and Anticipated Discharge Date Admission Date: March 24, 2022 Results & Data ([facility]) Vital Signs (Past 12 Hours) Vital Signs Temp Pulse Resp BP Pulse Ox 03/24/22 08:06 69 91/53 L 97 03/24/22 08:01 76 98 03/24/22 07:56 68 96 03/24/22 07:51 85 88/52 L 98 03/24/22 07:46 68 98 03/24/22 07:41 79 97 03/24/22 07:37 78 100/54 L 03/24/22 07:36 81 97 03/24/22 07:31 76 98 03/24/22 07:26 88 99 03/24/22 07:21 81 105/59 L 96 03/24/22 07:16 87 98 03/24/22 07:11 79 99 03/24/22 07:08 80 106/59 L 03/24/22 07:06 87 96 03/24/22 07:01 93 H 98 03/24/22 07:00 37.1 C 18 03/24/22 06:56 90 98 03/24/22 06:51 82 90/58 L 99 03/24/22 06:46 75 98 03/24/22 06:41 76 98 03/24/22 06:36 75 93/51 L 97 03/24/22 06:31 71 98 03/24/22 06:26 64 98 03/24/22 06:23 65 84/50 L 03/24/22 06:21 69 98 03/24/22 06:16 92 H 98 03/24/22 06:11 65 98 03/24/22 06:07 64 89/54 L 03/24/22 06:06 70 99 03/24/22 06:01 63 98 03/24/22 05:56 72 97 03/24/22 05:51 76 95/54 L 98 03/24/22 05:46 69 97 03/24/22 05:41 76 99 03/24/22 05:37 82 118/54 L 03/24/22 05:36 86 99 03/24/22 05:34 67 93/53 L 03/24/22 05:32 71 99/53 L 03/24/22 05:31 71 100 03/24/22 05:30 73 99/52 L 03/24/22 05:28 76 109/52 L 03/24/22 05:26 75 92/53 L 100 03/24/22 05:24 70 111/53 L 03/24/22 05:21 83 98 03/24/22 05:16 91 H 99 03/24/22 05:11 87 98 03/24/22 05:06 104 H 100 03/24/22 05:01 92 H 97 03/24/22 03:53 36.7 C 85 18 108/63
[2022-03-24] MEDS ORDERED: LIDOCAINE 2%/EPINEPHRINE 1:200,000 20 ML SDV ONE (09:26)
[2022-03-24] MEDS ORDERED: ACETAMINOPHEN 325 MG TAB PO PRN (10:09)
[2022-03-24] MEDS ORDERED: DIPHTHERIA/TETANUS/PERTUSSIS 0.5 ML SYR/VIAL IM ONE (10:09)
[2022-03-24] MEDS ORDERED: bisacodyL 10 MG SUPP PR PRN (10:09)
[2022-03-24] MEDS ORDERED: BENZOCAINE 20% AER SPR 82.5 GM CAN EXT PRN (10:09)
[2022-03-24] MEDS ORDERED: METHYLERGONOVINE MALEATE 0.2 MG/ML AMP IM ONE (10:09)
[2022-03-24] MEDS ORDERED: HYDROCORTISONE ACETATE 25 MG SUPP PR PRN (10:09)
[2022-03-24] MEDS ORDERED: miSOPROStoL 200 MCG TAB PR ONE (10:09)
--- NOTE | 2022-03-24 11:00 | Anesthesia Procedure Note ---
Date of Service March 24, 2022 Anesthesia Post Epidural Note Vital Signs Vital Signs: Temp Pulse Resp BP Pulse Ox 37.1 C 60 18 108/56 L 100 03/24/22 07:00 03/24/22 10:51 03/24/22 07:00 03/24/22 10:51 03/24/22 09:46 Notes Mental Status: alert / awake / arousable and participated in evaluation Patient Amnestic to Procedure: No Nausea / Vomiting: adequately controlled Pain: adequately controlled Airway Patency, RR, SpO2: stable & adequate BP & HR: stable & adequate Hydration State: stable & adequate Neuraxial Anesthesia: was administered and sensory block is resolving Anesthetic Complications: no major complications apparent and Pt Satisfied with anesthetic care Epidural: Removed without complications and With tip intact
[2022-03-24] MEDS: IBUPROFEN 600 MG TAB PO PRN ×3 (13:17→21:31)
--- NOTE | 2022-03-24 17:18 | Delivery Summary ---
DELIVERY NOTE: The patient delivered a live infant male in left occiput anterior presentation. Ther e was no nuchal cord. Infant was delivered and placed on mother's abdomen. Delayed cord clamp was p erformed. Cord blood was obtained. Placenta was spontaneously delivered. Inspection of the placent a shows normal looking placenta with 3-vessel cord. Inspection of the peritoneum showed no laceratio n or tears. ESTIMATED BLOOD LOSS: 150 mL. Rectal exam post-repair showed good sphincter tone. All instruments were removed from the vagina and accounted for, including sponges, needles, and retra ctors. The patient and baby are recovering and doing well. Job ID: [id number]
[2022-03-24] MEDS: DOCUSATE SODIUM 100 MG CAP PO SCH (21:31)
[2022-03-25 06:19] LABS: Hemoglobin 10.6 g/dL (12.0-16.0); Mean Corpuscular Hemoglobin 31.2 pg (25-34); Mean Corpuscular Hgb Conc 34.2 g/dL (32-36); Mean Corpuscular Volume 91.2 fL (80-100); Mean Platelet Volume 9.2 fL (7.4-10.4); Platelet Count 193 K/uL (130-400); RDW Coefficient of Variation 13.2 % (11.5-14.5); RDW Standard Deviation 43.7 fL (36.4-46.3); White Blood Count 12.28 K/uL (4.8-10.8)
[2022-03-25] MEDS ORDERED: PRENATAL VITAMIN 1 TAB PO SCH (08:00)
[2022-03-25] MEDS: DOCUSATE SODIUM 100 MG CAP PO SCH (08:02)
[2022-03-25] MEDS: IBUPROFEN 600 MG TAB PO PRN ×2 (08:02→14:22)
--- NOTE | 2022-03-25 09:25 | Obstetrical Progress Note ---
Date of Service March 25, 2022 Subjective Ambulation: ambulating normally Voiding: no voiding problems Passing Gas:: Yes Diet Tolerance:: regular diet Lochia:: Small Feeding Type:: bottle feeding Current Pain Level(1-10): 0 doing well. plans for d/c Results & Data ([facility]) Vital Signs (Past 12 Hours) Vital Signs Temp Pulse Resp BP Pulse Ox 03/25/22 04:00 36.6 C 76 16 102/69 99 03/24/22 23:25 36.7 C 64 18 109/70 98 Laboratory Results 03/24/22 03/24/22 03/25/22 03:54 04:13 06:03 WBC 11.08 H 12.28 H RBC 3.98 L 3.40 L Hgb 12.2 10.6 L Hct 35.7 L 31.0 L MCV 89.7 91.2 MCH 30.7 31.2 MCHC 34.2 34.2 RDW Std Deviation 41.9 43.7 RDW Coeff of Jose A 12.9 13.2 Plt Count 245 193 MPV 9.1 9.2 SARS-CoV-2, RNA, NAAT NEGATIVE
[2022-03-25] MEDS ORDERED: bisacodyL 5 MG TABEC PO SCH (20:00)
== END 2022-03-25 16:15 | disposition home or self-care (01) | DRG 807 ==
LOC: OPB 03:18 → 4S1 03:20 → 4E2 12:21